=== PATIENT | female | born 1955 | race African-American/Black ===

== ENCOUNTER 2019-10-09 09:53 | Outpatient (CLI) | payer MEDICARE, SELFPAY ==
--- NOTE | ~2019-10-09 | MM_ITS ---
EXAMINATION: MM screening kiya BI w mary HISTORY: Screening mammogram TECHNIQUE: Craniocaudal and mediolateral oblique 3-D tomosynthesis images were obtained and synthetic 2-D images were generated. CAD analysis was submitted and interpreted. COMPARISON: 10/06/2018, 09/30/2017, 08/23/2015 bilateral digital screening mammogram examinations BREAST PARENCHYMAL COMPOSITION: There are scattered areas of fibroglandular density. FINDINGS: There are scattered bilateral benign calcifications. There is no evidence of suspicious mas s, calcification, or architectural distortion to suggest malignancy in either breast. There has been no suspicious interval change. IMPRESSION: 1. No mammographic evidence of malignancy. 2. Recommend routine screening mammography in one year. BI-RADS Category 2: Benign finding(s). Reviewed, dictated and finalized at location A.
== END 2019-10-09 09:54 | disposition home or self-care (01) ==
LOC: ANHIMG 10:01
PROVIDERS: PCP Family Medicine; Visit Provider Family Medicine
DX: Z12.31 Encounter for screening mammogram for malignant neoplasm of breast (principal)
CPT/HCPCS: 77063; 77067

== ENCOUNTER 2019-12-24 10:14 | Outpatient (CLI) | payer MEDICARE, SELFPAY ==
--- NOTE | ~2019-12-24 | CT_ITS ---
EXAMINATION:CT lung screening DATE: 12/24/2019 11:10 INDICATION: Personal history of tobacco dependence. Current smoker with 32 pack year history. TECHNIQUE: Computed tomography (CT) of the chest was performed without intravenous contrast. Automate d exposure control and iterative reconstruction technique were employed. The dose-length product (DLP ) was 322.83 mGy-cm. COMPARISON: Chest CT 09/30/2017 FINDINGS: A calcified left lung nodule is consistent with old granulomatous disease. No pleural effus ion. The heart size is normal. There are coronary artery calcifications. No pericardial effusion. The re are surgical changes of the stomach. There is a ventral hernia containing nonobstructed small see l. There is moderate thoracic spondylosis. IMPRESSION: 1. Lung-RADS category 1: Negative. Continue annual screening with noncontrast low-dose chest CT in 12 months. Reviewed, dictated and finalized at location A. IMPRESSION: 1. Lung-RADS category 1: Negative. Continue annual screening with noncontrast l ow-dose chest CT in 12 months.
== END 2019-12-24 10:15 | disposition home or self-care (01) ==
LOC: ANHIMG 10:21
PROVIDERS: PCP Family Medicine; Visit Provider Family Medicine
DX: Z12.2 Encounter for screening for malignant neoplasm of respiratory organs (principal); F17.210 Nicotine dependence, cigarettes, uncomplicated
CPT/HCPCS: G0297

== ENCOUNTER 2020-10-19 08:31 | Outpatient (CLI) | payer MEDICARE, SELFPAY ==
--- NOTE | ~2020-10-19 | CT_ITS ---
EXAMINATION: CT abdomen pelvis wo con DATE: 10/19/2020 09:14 INDICATION: Abdominal pain TECHNIQUE: Computed tomography (CT) of the abdomen and pelvis was performed without intravenous contr ast. Automated exposure control and iterative reconstruction technique were employed. Exam dose: 144 5.63 mGy-cm total exam DLP. COMPARISON: None. FINDINGS: Minimal atelectasis in the dependent lower lobes, right greater than left. Normal heart size. No pericardial or pleural effusion. The gallbladder is absent. The liver, spleen, pancreas, bile ducts and pancreatic duct are unremarkable. No adrenal mass lesion. No renal mass lesion or urinary tract calculus or hydroureteronephrosis is detected. The urinary blad tr is unremarkable. Multiple calcified uterine outline fibroids including up to 6.5 cm heavily calcified uterine fibroid. Postoperative change of the stomach (gastric bypass). Multiple diverticula of the descending colon, without evidence of diverticulitis. No bowel obstructio n, bowel wall thickening, pneumatosis or intraperitoneal free air. Normal caliber of the abdominal aorta. No intraperitoneal or retroperitoneal or pelvic mass lesion or adenopathy or ascites. There is a wide supraumbilical ventral abdominal wall defect containing fat, small bowel and transver se colon without strangulation or obstruction. Small fat-containing umbilical hernia. Degenerative changes of the thoracic and lumbar spine, including multilevel degenerative disc disease of the lumbar and lumbosacral spine and degenerative change at the apophyseal joints with associated grade 1 anterolisthesis at L4-5. IMPRESSION: Status post cholecystectomy Status post gastric bypass Multiple up to 6.5 cm calcified uterine fibroids Diverticulosis of the descending colon; no CT evidence of diverticulitis Reviewed, dictated and finalized at [facility]. Reviewed, dictated and finalized at location A.
== END 2020-10-19 08:32 | disposition home or self-care (01) ==
LOC: ANHIMG 08:38
PROVIDERS: PCP Family Medicine; Visit Provider Family Medicine
DX: R10.9 Unspecified abdominal pain (principal); Z90.49 Acquired absence of other specified parts of digestive tract; Z98.84 Bariatric surgery status; D25.9 Leiomyoma of uterus, unspecified; K57.90 Diverticulosis of intestine, part unspecified, without perforation or abscess without bleeding
CPT/HCPCS: 74176

== ENCOUNTER 2021-02-08 09:46 | Emergency (ER) | payer MEDICARE, SELFPAY ==
--- NOTE | ~2021-02-08 | XR_ITS ---
EXAMINATION: XR hip LT 2V w AP pelvis DATE: 02/08/2021 12:34 INDICATION: Left hip and groin pain post fall 3 weeks prior TECHNIQUE: Anteroposterior view of the pelvis and anteroposterior and frog-leg lateral views of the l eft hip were obtained. COMPARISON: CT dated 10/19/2020 FINDINGS: Bone alignment is normal. No fracture. Severe osteoarthritis at the left hip with axial predominant n onuniform joint space narrowing with subarticular sclerosis and cystic changes at the medial aspect o f the left femoral head. There is slight left acetabular protrusio likely related to secondary remode ling with prominent sclerosis of the quadrilateral plate. Mild right hip osteoarthritis. Moderate geovani ateral sacroiliac osteoarthritis and moderate to severe lower lumbar spondylosis. Multiple phlebolith s in the pelvis along with a larger 7.6 x 5.4 cm calcified fibroid in the central pelvis. IMPRESSION: 1. Severe left and mild right hip osteoarthritis. Acute osseous abnormality. 2. [id number] lower lumbar spondylosis and moderate bilateral sacral iliac osteoarthritis. 3. Large calcified uterine fibroid. Reviewed, dictated and finalized at location A. YTICAL TECH IMPRESSION: 1. Severe left and mild right hip osteoarthritis. Acute osseous abnormality. 2. [id number] lower lumbar spondylosis and moderate bilateral sacral il iac osteoarthritis. 3. Large calcified uterine fibroid.
--- NOTE | ~2021-02-08 | CT_ITS ---
EXAMINATION: CT abdomen pelvis w con DATE: 02/08/2021 14:33 INDICATION: Left lower abdominal pain TECHNIQUE: Computed tomography (CT) of the abdomen and pelvis was performed with 100 mL Omnipaque-350 intravenous contrast. Automated exposure control and iterative reconstruction technique were employe d. The dose-length product was 1398.15 mGy-cm. COMPARISON: 10/19/2020 FINDINGS: Lung bases are clear. Heart size is normal. Atherosclerotic coronary artery calcific location. No per icardial or pleural effusion. Small sliding-type hiatal hernia with change of prior Daya-en-Y gastric bypass procedure. Gallbladder is not visualized and surgically absent. Liver, spleen, pancreas, bila teral adrenal glands and kidneys are normal. 6.5 cm densely calcified degenerated uterine fibroid. Ad ditional calcifications at the periphery of the uterus could represent additional calcified uterine f ibroids, phleboliths or some combination thereof. Bladder is normal. Bilateral adnexa are unremarkabl e. Scattered diverticulosis most prominent along the descending colon with mild inflammatory strandin g surrounding a diverticulum at the distal descending colon consistent with diverticulitis. No absces s, free intraperitoneal gas or fluid. There are couple large ventral hernias, the one to the cervical ventral hernias at the central abdomen, one on the left containing a short segment of nonobstructed transverse colon. No bowel obstruction. The appendix is not visualized. No pericecal inflammatory jose alfredo nge to suggest acute appendicitis. No pathologically enlarged abdominal or pelvic lymphadenopathy. Mo derate to severe thoracolumbar spondylosis. Bilateral hip osteoarthritis, severe on the left and mild on the right. Moderate bilateral sacroiliac osteoarthritis. IMPRESSION: 1. Radiographically uncomplicated diverticulitis at the distal descending colon. 2. Small sliding-type hiatal hernia. 3. Multiple ventral hernias one containing short segment of nonobstructed transverse colon. 4. Large calcified uterine fibroid. Reviewed, dictated and finalized at location A. 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 Radiographically uncomplicated diverticulitis at the distal descending colon . 2. Small sliding-type hiatal hernia. 3. Multiple ventral hernias one containing short segment of nonobstructed trans verse colon. 4. Large calcified uterine fibroid.
[2021-02-08 09:58] VITALS: BP 129/79; PULSE 92; RESP 20; TEMP 35.7; O2SAT 98
--- NOTE | 2021-02-08 12:07 | ED.LOWEXIN ---
HPI - Extremity Injury (Lower) General Chief Complaint: Extremity Injury, Lower Stated Complaint: L Hip and L Leg Pain Time Seen by Provider: 02/08/21 11:23 Source: patient and RN notes reviewed Mode of arrival: ambulatory Limitations: no limitations History of Present Illness HPI Narrative: This is a 65 year old female with history of sciatica, chronic pain and obesity who presents for evaluation of left groin pain. She has been dealing with left buttock pain for 2 months that she is being treated for sciatica. She accidentally fell 3 weeks ago onto her right side. She is here because she has been having intermittent left groin pain for 3 days. She still has groin pain today. She denies associated nausea, vomiting, fever, chills, dysuria, hematuria, or paresthesia. She normally takes tramadol every day for her pain but today she did not take her pain medication. She denies hitting her head or LOC during that fall. She rates her pain 10/10. Related Data Home Medications Medication Instructions Recorded Confirmed amoxicillin 02/16/19 metronidazole [Flagyl] 500 mg PO Q12H 02/16/19 Allergies Allergy/AdvReac Type Severity Reaction Status Date / Time morphine Allergy Unknown ITCHING Verified 02/16/19 12:09 Review of Systems Review of Systems: All systems reviewed & are unremarkable except as noted in HPI and below PMFSH Past Medical History Medical History Hypertension Surgical History Surgical History History of orthopedic surgery Social History Social History Smoking status: Current every day smoker Exam Const: General: no acute distress and alert Nutritional Appearance: obese Orientation/consciousness: patient oriented x3 HENMT: Head: normocephalic and atraumatic Face and sinus: normal facial exam, sinuses nontender and face symmetric Mouth: Yes Normal oral and palatal mucosa present, Yes lip normal, Yes oropharynx normal and Yes moist mucous membranes Eyes: EOM: EOMs intact bilaterally Resp: Effort & Inspection: normal respiratory effort and no retractions Auscultation: clear to auscultation bilaterally Cardio: Rate: regular rate Rhythm: regular rhythm Heart sounds: no murmurs GI: GI Palp: Yes Soft to palpation, Yes Tenderness to palpation present (GI) (LLQ), No Guarding due to palpation present (GI) and No Rigid due to palpation Auscultation: normal bowel sounds Back/Spine/Pelvis: Back: no CVA tenderness Skin: General skin exam: normal color Rashes: no rashes Neuro: General: patient oriented x3, moves all extremities and CN's II-XI intact bilaterally Course Reevaluation(s) Reevaluation #1: I discussed with patient that she was found to have diverticulitis causing her pain in her abdomen. She also has severe osteoarthritis. Date: 02/08/21 Time: 14:53 Vital Signs Vital signs: Vital Signs Temperature 96.3 F L 02/08/21 09:58 Pulse Rate 92 02/08/21 09:58 Respiratory Rate 20 02/08/21 09:58 Blood Pressure 129/79 02/08/21 09:58 Pulse Oximetry 98 02/08/21 09:58 Temperature 96.3 F L 02/08/21 09:58 Pulse Rate 88 02/08/21 15:22 Respiratory Rate 17 02/08/21 15:22 Blood Pressure 134/76 02/08/21 15:22 Pulse Oximetry 96 02/08/21 15:22 MDM - Extremity Injury (Lower) Lab Data Attestation: I reviewed the patient's lab results. Result diagrams: 02/08/21 13:22 02/08/21 13:22 Labs: Lab Results 02/08/21 02/08/21 02/08/21 Range/Units 13:22 13:22 13:22 WBC 7.1 (4.5-10.0) K/mm3 RBC 3.94 L (4.2-5.4) M/mm3 Hgb 11.6 L (12.0-15.0) g/dL Hct 36.3 L (37.0-47.0) % MCV 92.1 (80-100) fl MCH 29.4 (26-34) pg MCHC 32.0 (32-36) g/dl RDW 15.4 H (11.5-14.5) % Plt Count 325 (150-375) k/mm3 MPV 10.0 (7.4-10.4) fl
[2021-02-08] MEDS: HYDROcodone/acetaminophen (*CRX) 5-325 MG TABLET 1 TAB PO (12:27)
[2021-02-08 13:44] LABS: Basophils Percent Auto 0.1 % (0.2-1.2); Eosinophils Absolute Auto 0.3 K/mm3 (0-0.3); Eosinophils Percent Auto 4.2 % (0-4.4); Hematocrit 36.3 % (37.0-47.0); Hemoglobin 11.6 g/dL (12.0-15.0); Immature Granulocyte Absolute 0.01 K/mm3 (0.00-0.031); Immature Granulocyte Percent A 0.1 % (0-0.5); Lymphocytes Absolute Auto 2.76 K/mm3 (0.9-3.2); Lymphocytes Percent Auto 38.7 % (18.3-44.2); Mean Corpuscular Hemoglobin 29.4 pg (26-34); Mean Corpuscular Volume 92.1 fl (80-100); Monocytes Absolute Auto 0.9 K/mm3 (0.1-0.6); Monocytes Percent Auto 12.1 % (2.6-8.5); Neutrophils Absolute Auto 3.2 K/mm3 (1.3-6.7); Neutrophils Percent Auto 44.8 % (45.5-73.1); Platelet Count Result 325 k/mm3 (150-375); Red Blood Count 3.94 M/mm3 (4.2-5.4); Red Cell Distribution Width 15.4 % (11.5-14.5); White Blood Count 7.1 K/mm3 (4.5-10.0)
[2021-02-08 13:54] LABS: Alanine Aminotransferase 12 U/L (4-35); Albumin Level 4.1 g/dL (3.5-5.1); Alkaline Phosphatase 98 U/L (38-126); Anion Gap 7 mmol/L (8-16); Aspartate Amino Transferase 20 U/L (14-36); Bilirubin,Total 0.4 mg/dL (0.2-1.3); Blood Urea Nitrogen 13 mg/dL (7-17); Calcium 9.1 mg/dL (8.4-10.2); Carbon Dioxide 28 mmol/L (22-30); Chloride 103 mmol/L (98-107); Estimated CRCL calculation 117 ml/min; Estimated Glomerular Filt Rate > 60; Glucose 94 mg/dL (65-110); Potassium 4.3 mmol/L (3.4-5.0); Sodium 138 mmol/L (137-145)
[2021-02-08 13:59] LABS: Add Urine Microscopic? NO; Appearance Urine Clear (Clear); Bilirubin Urine Negative (Negative); Blood Urine Negative (Negative); Color Urine Straw (Yellow); Glucose Urine UA Negative (Negative); Ketones Urine Negative (Negative); Leukocyte Esterase Ur Negative LEU/UL (Negative); Nitrate Urine Negative (Negative); Protein Urine Negative (Negative); Specific Grav Ur 1.012 (1.001-1.035); Urobilinogen Urine Negative mg/dL (<2.0)
[2021-02-08 15:22] VITALS: BP 134/76; PULSE 88; RESP 17; O2SAT 96
== END 2021-02-08 15:31 | disposition home or self-care (01) ==
PROVIDERS: Emergency Provider General Practice; PCP Family Medicine
DX: K57.32 Diverticulitis of large intestine without perforation or abscess without bleeding (principal); M16.12 Unilateral primary osteoarthritis, left hip; K43.9 Ventral hernia without obstruction or gangrene; F17.210 Nicotine dependence, cigarettes, uncomplicated; I10 Essential (primary) hypertension
CPT/HCPCS: 36415; 73502; 74177; 80053; 81003; 85025; 99284; A9270; Q9967

== ENCOUNTER 2021-10-15 22:42 | Emergency (ER) | payer MEDICARE, SELFPAY ==
--- NOTE | ~2021-10-15 | CT_ITS ---
EXAMINATION: CT brain wo con DATE: 10/16/2021 03:18 INDICATION: Dizziness. Frontal headache. TECHNIQUE: Computed tomography (CT) of the head was performed without intravenous contrast. The mA wa s adjusted according to patient size. Iterative reconstruction technique was employed. The dose-lengt h product was 605.33 mGy-cm. COMPARISON: None FINDINGS: There is no intracranial hemorrhage, acute infarction, or abnormal intracranial mass lesion . The ventricles are normal in size. The paranasal sinuses are clear. The orbits are normal. The mast oid air cells are normal. IMPRESSION: 1. Normal brain. Reviewed, dictated and finalized at location A. IMPRESSION: 1. Normal brain.
[2021-10-15 22:46] VITALS: BP 173/81; PULSE 65; RESP 16; TEMP 36.2; O2SAT 100
--- NOTE | 2021-10-16 02:51 | ED.DIZZY ---
HPI - Dizziness General Chief Complaint: Dizziness Stated Complaint: dizzy Time Seen by Provider: 10/16/21 02:28 History of Present Illness HPI Narrative: 65-year-old female presented to the emergency department for evaluation of onset of dizziness and vertigo symptoms. Patient states on she was started on antibiotics and steroids for a ear infection. Patient states at approximately 730 this evening she had onset of a spinning sensation with associated nausea and dizziness. Patient states that this has since improved. Related Data Home Medications Medication Instructions Recorded Confirmed amoxicillin 500 mg capsule 02/16/19 metronidazole 500 mg tablet 500 mg PO Q12H 02/16/19 (Flagyl) Allergies Allergy/AdvReac Type Severity Reaction Status Date / Time morphine Allergy Unknown ITCHING Verified 10/16/21 03:24 Review of Systems Review of Systems: CONSTITUTIONAL: Denies fever, chills, or sweats. EYES: Denies visual changes, redness, or discharge. ENT: Denies rhinorrhea, congestion, sore throat, or otalgia. CARDIOVASCULAR: Denies chest pain, palpitations, or edema. RESPIRATORY: Denies cough or dyspnea. GASTROINTESTINAL: Denies abdominal pain, nausea, vomiting, or diarrhea. GENITOURINARY: Denies dysuria or hematuria. SKIN: Denies rash or itching. MUSCULOSKELETAL: Denies back pain, joint pain, or myalgia. NEUROLOGIC: Denies numbness or weakness but does have vertigo PMFSH Past Medical History Medical History Hypertension Surgical History Surgical History History of orthopedic surgery Social History Social History Smoking status: Current every day smoker Exam Narrative: APPEARANCE: Well appearing, no pain, no distress, well-nourished. HEAD: normocephalic, atraumatic. EYES: PERRLA/EOMI, conjunctivae clear. NOSE: Normal no drainage EARS: Bilateral cerumen impaction THROAT: Pharynx clear, no exudate. NECK: Supple. No adenopathy, no masses. RESPIRATORY: Airway patent, respirations nonlabored. Clear to auscultation bilaterally, no rales, rhonchi, wheezing. CARDIOVASCULAR: Regular rate and rhythm without murmurs rubs or gallops. ABDOMINAL: Soft, nontender, nondistended, normal bowel sounds MUSCULOSKELETAL: Moves all extremities. Strength/ROM intact, No edema, No calf tenderness. NEURO: Alert. Cranial nerves II through XII intact. Grossly intact SKIN: Warm, dry. Normal Color Course Course Emergency Course: Patient did not tolerate her ears being cleaned. Patient reports her symptoms did improve with the meclizine. Patient is currently on antibiotics. Vital Signs Vital signs: Vital Signs Temperature 97.2 F L 10/15/21 22:46 Pulse Rate 65 10/15/21 22:46 Respiratory Rate 16 10/15/21 22:46 Blood Pressure 173/81 H 10/15/21 22:46 Pulse Oximetry 100 10/15/21 22:46 Oxygen Delivery Room Air 10/15/21 22:46 Temperature 98.0 F 10/16/21 03:21 Pulse Rate 63 10/16/21 04:21 Respiratory Rate 20 10/16/21 04:21 Blood Pressure 113/67 10/16/21 04:21 Pulse Oximetry 100 10/16/21 04:21 Oxygen Delivery Room Air 10/15/21 22:46 MDM - Dizziness Lab Data Result diagrams: 10/16/21 03:02 10/16/21 03:02 Labs: Lab Results 10/16/21 10/16/21 Range/Units 03:02 03:02 WBC 9.7 (4.5-10.0) K/mm3 RBC 4.09 L (4.2-5.4) M/mm3 Hgb 10.9 L (12.0-15.0) g/dL Hct 35.7 L (37.0-47.0) % MCV 87.3 (80-100) fl MCH 26.7 (26-34) pg MCHC 30.5 L (32-36) g/dl RDW 15.6 H (11.5-14.5) % Plt Count 368 (150-375) k/mm3 MPV 9.4 (7.4-10.4) fl Immature Gran % (Auto) 0.2 (0-0.5) % Neut % (Auto) 42.2 L (45.5-73.1) % Lymph % (Auto) 46.6 H (18.3-44.2) % Harlan % (Auto) 9.8 H (2.6-8.5) % Eos % (Auto) 0.8 (0-4.4) % Baso % (Auto) 0.4 (0.2-1.2) % Ly
[2021-10-16 03:06] LABS: Basophils Percent Auto 0.4 % (0.2-1.2); Eosinophils Absolute Auto 0.1 K/mm3 (0-0.3); Eosinophils Percent Auto 0.8 % (0-4.4); Hematocrit 35.7 % (37.0-47.0); Hemoglobin 10.9 g/dL (12.0-15.0); Immature Granulocyte Absolute 0.02 K/mm3 (0.00-0.031); Immature Granulocyte Percent A 0.2 % (0-0.5); Lymphocytes Percent Auto 46.6 % (18.3-44.2); Mean Corpuscular HGB Conc 30.5 g/dl (32-36); Mean Corpuscular Hemoglobin 26.7 pg (26-34); Mean Corpuscular Volume 87.3 fl (80-100); Mean Platelet Volume 9.4 fl (7.4-10.4); Monocytes Percent Auto 9.8 % (2.6-8.5); Neutrophils Absolute Auto 4.1 K/mm3 (1.3-6.7); Neutrophils Percent Auto 42.2 % (45.5-73.1); Platelet Count Result 368 k/mm3 (150-375); Red Blood Count 4.09 M/mm3 (4.2-5.4); Red Cell Distribution Width 15.6 % (11.5-14.5); White Blood Count 9.7 K/mm3 (4.5-10.0)
[2021-10-16 03:17] LABS: Alanine Aminotransferase 14 U/L (6-35); Albumin Level 4.3 g/dL (3.5-5.1); Alkaline Phosphatase 85 U/L (38-126); Anion Gap 5 mmol/L (8-16); Aspartate Amino Transferase 30 U/L (14-36); Bilirubin,Total 0.4 mg/dL (0.2-1.3); Blood Urea Nitrogen 16 mg/dL (7-17); Calcium 8.7 mg/dL (8.4-10.2); Carbon Dioxide 32 mmol/L (22-30); Chloride 100 mmol/L (98-107); Estimated CRCL calculation 103 ml/min; Estimated Glomerular Filt Rate > 60; Glucose 97 mg/dL (65-110); Potassium 3.7 mmol/L (3.4-5.0); Sodium 137 mmol/L (137-145)
[2021-10-16] MEDS: MECLIZINE HCL 25 MG TABLET PO (03:20)
[2021-10-16 03:21] VITALS: BP 112/63; PULSE 71; RESP 18; TEMP 36.7; O2SAT 100
[2021-10-16 04:21] VITALS: BP 113/67; PULSE 63; RESP 20; O2SAT 100
== END 2021-10-16 04:23 | disposition home or self-care (01) ==
PROVIDERS: Emergency Provider Emergency Medicine; PCP Family Medicine
DX: H81.10 Benign paroxysmal vertigo, unspecified ear (principal); H61.23 Impacted cerumen, bilateral; I10 Essential (primary) hypertension; F17.200 Nicotine dependence, unspecified, uncomplicated
CPT/HCPCS: 36415; 70450; 80053; 85025; 99284; A9270

== ENCOUNTER 2024-01-02 07:21 | Outpatient (CLI) | payer MEDICARE, SELFPAY ==
--- NOTE | ~2024-01-02 | MM_ITS ---
EXAMINATION: MM screening kiya BI w mary HISTORY: Screening TECHNIQUE: Craniocaudal and mediolateral oblique 3-D tomosynthesis images were obtained and synthetic 2-D images were generated. CAD analysis was submitted and interpreted. COMPARISON: Comparison to multiple prior studies sequentially, with oldest reviewed study dated 09/30. BREAST PARENCHYMAL COMPOSITION: Not Dense: The breasts are almost entirely fatty. FINDINGS: There is no evidence of suspicious mass, calcification, or architectural distortion to sugg est malignancy in either breast. There has been no suspicious interval change. IMPRESSION: 1. No mammographic evidence of malignancy. 2. Recommend routine screening mammography in one year. BI-RADS Category 1: Negative Reviewed, dictated and finalized at location B.
== END 2024-01-02 07:22 | disposition home or self-care (01) ==
LOC: ANHIMG 07:22
PROVIDERS: PCP Nurse Practitioner Family; Visit Provider Family Medicine
DX: Z12.31 Encounter for screening mammogram for malignant neoplasm of breast (principal)
CPT/HCPCS: 77063; 77067

== ENCOUNTER 2024-01-23 08:27 | Outpatient (CLI) | payer MEDICARE, SELFPAY ==
--- NOTE | ~2024-01-23 | CT_ITS ---
CT Scan of the Chest without Contrast: Clinical Indication: Lung cancer screening, nicotine dependence Technique: Contiguous sections were acquired throughout the chest without intravenous contrast. Dose reduction technique was used on this scan by utilizing automated exposure control and iterative recon struction technique. The dose-length product (DLP) was 336.50 mGy-cm. Findings: There is no evidence of any significant mediastinal, hilar or axillary lymphadenopathy. Coronary mustapha ry calcifications are present. There is no evidence of pleural or pericardial effusion. The lungs are clear. No pulmonary nodules or infiltrates are noted. Images through the upper abdomen reveal no abnormalities. Impression: Lung RADS 1: Negative. 12 month follow-up screening CT advised. Reviewed, dictated and finalized at location . TIVE DIRECTOR Impression: Lung RADS 1: Negative. 12 month follow-up screening CT advised.
--- NOTE | ~2024-01-23 | XR_ITS ---
AP and lateral views of the left hip Clinical history: Pain Findings: No acute fracture or dislocation is seen. Osseous alignment is anatomic. There is moderate to advanced left hip arthritis, joint space narrowing and osteophyte formation. There is probable joanne ctive sclerosis. Suggestion of developing acetabular protrusio. Moderate degenerative change of bilat eral SI joints noted. Large calcified uterine fibroids are present. Impression: Moderate to advanced degenerative change of left hip joint with possible developing acetabular protru sio, as detailed above. Large calcified fibroids. Moderate degenerative change of the SI joints. Reviewed, dictated and finalized at location . [employer]VERTISING [employer] ONLINE Impression: Moderate to advanced degenerative change of left hip joint with possible develo ping acetabular protrusio, as detailed above. Large calcified fibroids. Moderate degenerative change of the SI joints.
== END 2024-01-23 08:28 | disposition home or self-care (01) ==
PROVIDERS: PCP Nurse Practitioner Family; Visit Provider Nurse Practitioner Family
DX: M16.12 Unilateral primary osteoarthritis, left hip (principal); Z12.2 Encounter for screening for malignant neoplasm of respiratory organs; D36.7 Benign neoplasm of other specified sites; F17.210 Nicotine dependence, cigarettes, uncomplicated
CPT/HCPCS: 71271; 73502

== ENCOUNTER 2025-01-08 11:34 | Outpatient (CLI) | payer MEDICARE, SELFPAY ==
--- OUTSIDE RECORDS SUMMARY | 2024-12-07 08:20 | XMS_ITS ---
Author Organization [facility] Address [address] [place] [address] Care Team Providers Care Review Assistant Name Role Phone Mikayla Hernandez Primary Care Provider REASON FOR VISIT 4 week F/U *must be in office* Medications Medication SIG (Take, Route, Frequency, Duration) Notes Start Date End Date Status Fish Oil [place]-3 1000 MG 1 capsule Orall y Once a day Active Vitamin E 180 MG (400 UNIT) as directed Orally Active Calcium 600 MG 1 tablet with meals Orally Twice a day Active Potassium 99 MG 1 tablet Orally Once a day Active Hair Skin & Nails Advanced - as directed Orally Active Vitamin D3 50 MCG (2000 UT) 1 tablet Ora lly Once a day Active Vitamin C 500 MG 1 tablet Orally Once a day Active busPIRone HCl 15 MG 1 tablet once daily in the afternoon Orally Once a day; Duration: 30 days Active traZODone HCl 50 MG 1 to 1.5 tablets at bedtime as needed for sleep Orally Once a day; Duration: 30 days As needed for sleep Active Gabapentin 100 MG 1 capsule Orally twice a day; Duration: 30 days As needed for pain or to sleep Active FLUoxetine HCl 40 MG 1 capsule Orally on ce nightly at bedtime; Duration: 30 days Active clonazePAM 1 MG 1 tablet Orally 3 times a day; Duration: 30 days As needed for anxiety Active busPIRone HCl 30 MG 1 tablet in the morn ing and 1 tablet in the evening Orally Twice a day; Duration: 30 days Active Gabapentin 300 MG 1 capsule Orally at bedtime to assist with sleep/anxiety; Duration: 30 days Active Lisinopril 10 MG 1 tablet Orally Once a day Active Aspirin 81 Active traMADol HCl 50 MG 1 tablet as needed Orally Once a day Active hydroCHLOROthiazide 25 MG 1 tablet in the morning Orally Once a day As needed Active Ibuprofen 800 MG 1 tablet with food o r milk as needed Orally every 8 hrs Active Famotidine 40 MG 1 tablet as needed Orally Once a day Active Womens 50+ Multi Vitamin Active Vitamin B-12 2500 MCG as directed Sublingual Active Ce Allergy 180 MG 1 tablet Orally O nce a day Active Social History Sex Assigned At : Social History Observation Description Sex Assigned At Female Encounters Encounter Location Date Provider Diagnosis [place] [address] [address] 12/07/2024 Mikayla Hernandez Depression F32.9 ; Anxiety F41.9 ; Benzodiazepine dependence F13.20 ; Alcohol use disorder in remission F10.91 ; Nicotine dependence F17.200 and Fatigue R53.83 Assessments Encounter Date Diagnosis (ICD Code) Assessment Notes Treatment Notes Treatment Clinical Notes Section Notes 12/07/2024 Depression (ICD-10 - F32.9) 12/07/2024 Anxiety (ICD-10 - F41.9) Clonazepam. Now taking 2 -3 mg QD down from 4 mg. . Explained that the goal is use sparingly or not at all and we will go very slow with this taper. Asked to come in person at next visit and to bring all medications. 12/07/2024 Benzodiazepine dependence (ICD-10 - F13.20) PCP 01/01 prescribing clonazepam 2 mg TID Reduced to 2 mg BID by Tess Cohen. 08/20/24 Using 2 mg BID, stopped Ambien 09/08/24 clonazepam 2-3 mg total QD. 12/06/24 12/07/2024 Alcohol use disorder in remission (ICD-10 - F10.91) 12/07/2024 Nicotine dependence (ICD-10 - F17.200) 12/07/2024 Fatigue (ICD-10 - R53.83) Agrees to labs. Discussed Primary care at [facility]. DOES SHEWANT TOPURSUE Plan Of Treatment Medication Medication Name Sig Start Date Stop Date Notes busPIRone HCl 15 MG 1 tablet once daily in the afternoon Orally Once a day; Duration: 30 days traZODone HCl 50 MG 1 to 1.5 tablets at bedtime as needed for sleep Orally Once a day; Duration: 30 days Gabapentin 100 MG 1 capsule Orally twi ce a day; Duration: 30 days FLUoxetine HCl 40 MG 1 capsule Orally on ce nightly at bedtime; Duration: 30 days clonazePAM 1 MG 1 tablet Orally 3 ti mes a day; Duration: 30 days busPIRone HCl 30 MG 1 tablet in the morn ing and 1 tablet in the evening Orally Twice a day; Duration: 30 days Treatment Notes Assessment Notes Anxiety Clonazepam. Now taking 2 -3 mg QD down from 4 mg. . Explained that the goal is use sparingly or not at all and we will go very slow with this taper. Asked to come in person at next visit and to bring all medications. Benzodiazepine dependence PCP 01/01 prescribing clonazepam 2 mg TID Reduced to 2 mg BID by Tess Cohen. 08/20/24 Using 2 mg BID, stopped Ambien 09/08/24 clonazepam 2-3 mg total QD. 12/06/24 Fatigue Agrees to labs. Disc ussed Primary care at [facility]. DOES DAVID DUPREE Progress Notes * Chelsy SENIORDOB: 5 (69 yo F)Acc No.[id number]:12/07/2024 UNLOCKED PROGRESS NOTE Patient: Haritha KIRKLAND Chelsy Provider: CONNIE Campbell :1955 A ge:69 Y S ex:Female Date:12/07/2024 Address:[address] [place], [place] [id number] Subjective: * Chief Complaints: * 1 . 4 week F/U *must be in office*. * Medical History: * Medications: T alondrag Vitamin C 500 MG Tablet 1 tablet Orally Once a day , Taking Vitamin D3 50 MCG (2000 UT) Tablet 1 tablet Orally Once a day , Taking Calcium 600 MG Tablet 1 tablet with meals Orally Twice a day , Taking Vitamin E 180 MG (400 UNIT) Capsule as directed Orally , Taking Hair Skin & Nails Advanced - Tablet as directed Orally , Taking Potassium 99 MG Tablet 1 tablet Orally Once a day , Taking Fish Oil [place]-3 1000 MG Capsule 1 capsule Orally Once a day , Taking Vitamin B-12 2500 MCG Tablet Sublingual as directed Sublingual , Taking Womens 50+ Multi Vitamin , Taking Ce Allergy 180 MG Tablet 1 tablet Orally Once a day , Taking Aspirin 81 , Taking hydroCHLOROthiazide 25 MG Tablet 1 tablet in the morning Orally Once a day As needed, Taking traMADol HCl 50 MG Tablet 1 tablet as needed Orally Once a day , Taking Famotidine 40 MG Tablet 1 tablet as needed Orally Once a day , Taking Ibuprofen 800 MG Tablet 1 tablet with food or milk as needed Orally every 8 hrs , Taking Lisinopril 10 MG Tablet 1 tablet Orally Once a day , Taking Gabapentin 300 MG Capsule 1 capsule Orally at bedtime to assist with sleep/anxiety , Taking clonazePAM 1 MG Tablet 1 tablet Orally 3 times a day As needed for anxiety, Taking FLUoxetine HCl 40 MG Capsule 1 capsule Orally once nightly at bedtime , Taking busPIRone HCl 30 MG Tablet 1 tablet in the morning and 1 tablet in the evening Orally Twice a day , Taking busPIRone HCl 15 MG Tablet 1 tablet once daily in the afternoon Orally Once a day , Taking Gabapentin 100 MG Capsule 1 capsule Orally twice a day As needed for pain or to sleep, Taking traZODone HCl 50 MG Tablet 1 to 1.5 tablets at bedtime as needed for sleep Orally Once a day As needed for sleep Objective: * Vitals: Assessment: * Assessment: 1. D epression - F32.9 2 . A nxiety - F41.9 (Primary) 3 .?Benzodiazepine dependence - F13.20 4 . A lcohol use disorder in remission - F10.91 5 . N icotine dependence - F17.200 6 . F atigue - R53.83 Plan: * Treatment: 2. B enzodiazepine dependence Notes: PCP 01/01 prescribing clonazepam 2 mg TID Reduced to 2 mg BID by Tess Cohen. 08/20/24 Using 2 mg BID, stopped Ambien 09/08/24 clonazepam 2-3 mg total QD. 12/06/24 3. F piyush Notes: Agrees to labs. Discussed Primary care at [facility].DOES SHEWANT TOPURSUE * * Electronic signature of Mikayla Hernandez , [id number] on 01/08/2025 at 11:44 AM CDT Sign off status: Pending * Provider: VISHAL Campbell- Date: 0 12/07/2024 Generated for Lory sen/Alla/eTransmitting on: 1 11:44 AM CDT
--- OUTSIDE RECORDS SUMMARY | 2024-12-14 08:40 | XMS_ITS ---
Author Organization [facility] Address [address] [place] [address] Care Team Providers Care Family Practice Doctor Name Role Phone Mikayla Hernandez Primary Care Provider REASON FOR VISIT 4 week F/U *must be in office* Medications Medication SIG (Take, Route, Frequency, Duration) Notes Start Date End Date Status busPIRone HCl 30 MG 1 tablet in the morn ing and 1 tablet in the evening Orally Twice a day; Duration: 30 days Active traZODone HCl 50 MG 1 to 1.5 tablets at bedtime as needed for sleep Orally Once a day; Duration: 30 days As needed for sleep Active clonazePAM 1 MG 1 tablet Orally 3 times a day; Duration: 30 days As needed for anxiety Active FLUoxetine HCl 40 MG 1 capsule Orally on ce nightly at bedtime; Duration: 30 days Active clonazePAM 1 MG 1 tablet Orally 3 times a day; Duration: 8 days As needed 12/07/2024 Active Lisinopril 10 MG 1 tablet Orally Once a day Active Gabapentin 300 MG 1 capsule Orally at bedtime to assist with sleep/anxiety; Duration: 30 days Active Famotidine 40 MG 1 tablet as needed Orally Once a day Active Ibuprofen 800 MG 1 tablet with food o r milk as needed Orally every 8 hrs Active traMADol HCl 50 MG 1 tablet as needed Orally Once a day Active Vitamin B-12 2500 MCG as directed Sublingual Active Womens 50+ Multi Vitamin Active hydroCHLOROthiazide 25 MG 1 tablet in the morning Orally Once a day As needed Active Ce Allergy 180 MG 1 tablet Orally O nce a day Active Aspirin 81 Active Vitamin E 180 MG (400 UNIT) as directed Orally Active Hair Skin & Nails Advanced - as directed Orally Active Calcium 600 MG 1 tablet with meals Orally Twice a day Active Potassium 99 MG 1 tablet Orally Once a day Active Fish Oil [place]-3 1000 MG 1 capsule Orall y Once a day Active busPIRone HCl 15 MG 1 tablet once daily in the afternoon Orally Once a day; Duration: 30 days Active Vitamin D3 50 MCG (2000 UT) 1 tablet Ora lly Once a day Active Gabapentin 100 MG 1 capsule Orally twice a day; Duration: 30 days As needed for pain or to sleep Active Vitamin C 500 MG 1 tablet Orally Once a day Active Social History Sex Assigned At : Social History Observation Description Sex Assigned At Female Encounters Encounter Location Date Provider Diagnosis [address] [address] 12/14/2024 Mikayla Hernandez Depression F32.9 ; Anxiety F41.9 ; Benzodiazepine dependence F13.20 ; Alcohol use disorder in remission F10.91 ; Nicotine dependence F17.200 and Fatigue R53.83 Assessments Encounter Date Diagnosis (ICD Code) Assessment Notes Treatment Notes Treatment Clinical Notes Section Notes 12/14/2024 Depression (ICD-10 - F32.9) 12/14/2024 Anxiety (ICD-10 - F41.9) Clonazepam. Now taking 2 -3 mg QD down from 4 mg. . Explained that the goal is use sparingly or not at all and we will go very slow with this taper. Asked to come in person at next visit and to bring all medications. 12/14/2024 Benzodiazepine dependence (ICD-10 - F13.20) PCP 01/01 prescribing clonazepam 2 mg TID Reduced to 2 mg BID by Tess Cohen. 08/20/24 Using 2 mg BID, stopped Ambien 09/08/24 clonazepam 2-3 mg total QD. 12/06/24 12/14/2024 Alcohol use disorder in remission (ICD-10 - F10.91) 12/14/2024 Nicotine dependence (ICD-10 - F17.200) 12/14/2024 Fatigue (ICD-10 - R53.83) Agrees to labs. Discussed Primary care at [facility]. DOES SHEWANT TOPURSUE Plan Of Treatment Medication Medication Name Sig Start Date Stop Date Notes busPIRone HCl 30 MG 1 tablet in the morn ing and 1 tablet in the evening Orally Twice a day; Duration: 30 days traZODone HCl 50 MG 1 to 1.5 tablets at bedtime as needed for sleep Orally Once a day; Duration: 30 days clonazePAM 1 MG 1 tablet Orally 3 ti mes a day; Duration: 30 days FLUoxetine HCl 40 MG 1 capsule Orally on ce nightly at bedtime; Duration: 30 days busPIRone HCl 15 MG 1 tablet once daily in the afternoon Orally Once a day; Duration: 30 days Gabapentin 100 MG 1 capsule Orally twi ce a day; Duration: 30 days Treatment Notes [...] to labs. Disc ussed Primary care at [facility]. DOES [facility] Progress Notes * Chelsy SENIORDOB: 5 (69 yo F)Acc No.[id number]:12/14/2024 UNLOCKED PROGRESS NOTE Patient: Chelsy MEDINA Provider: SIVAKUMAR Campbell :1955 A ge:69 Y S ex:Female Date:12/14/2024 Address:[address] [place], [place] [id number] Subjective: * Chief Complaints: * 1 . 4 week F/U *must be in office*. * Medical History: * Medications: T aking Vitamin C 500 MG Tablet 1 tablet [...] Once a day , Taking Fish Oil [place]-3 1000 MG Capsule 1 capsule Orally Once [...] evening Orally Twice a day , Taking traZODone HCl 50 MG Tablet 1 to 1.5 tablets at bedtime as needed for sleep Orally Once a day As needed for sleep, Taking busPIRone HCl 15 MG Tablet 1 tablet once daily in the afternoon Orally Once a day , Taking Gabapentin 100 MG Capsule 1 capsule Orally twice a day As needed for pain or to sleep, Taking clonazePAM 1 MG Tablet 1 tablet Orally 3 times a day As needed Objective: * Vitals: Assessment: * Assessment: 1. [...] Agrees to labs. Discussed Primary care at [facility].DOES SHEWANT TOPURSUE * * Electronic signature of Mikayla Hernandez , [id number] on 01/08/2025 at 11:43 AM CDT Sign off status: Pending * Provider: SIVAKUMAR Campbell Date: 1 Generated for Lory sen/Alla/Marlon on: 11:43 AM CDT
--- OUTSIDE RECORDS SUMMARY | 2024-12-21 08:20 | XMS_ITS ---
Author Organization [facility] Address [address] [place] [address] Care Team Providers Care Radiology Therapist Name Role Phone Mikayla Hernandez Primary Care Provider REASON FOR VISIT r/s from 12/14/24 4 week F/U *must be in office* Social History Sex Assigned At : Social History Observation Description Sex Assigned At Female Encounters Encounter Location Date Provider Diagnosis Replaced By [facility] [address] [place] [address] 12/21/2024 Mikayla Hernandez Plan Of Treatment No Information Progress Notes * Chelsy SENIORDOB: (69 yo F)Acc No.[id number]:12/21/2024 UNLOCKED PROGRESS NOTE Patient: Chelsy MEDINA Provider: SIVAKUMAR Campbell :1955 A ge:69 Y S ex:Female Date:12/21/2024 Address:[address], [id number] Subjective: * Chief Complaints: * 1 . r/s from 12/14/24 4 week F/U *must be in office*. * Medical History: Objective: * Vitals: Assessment: Plan: * Treatment: * * Electronic signature of Mikayla Hernandez , [id number] on 01/08/2025 at 11:44 AM CDT Sign off status: Pending * Provider: SIVAKUMAR Campbell Date: Generated for Lory sen/Alla/Armidaitting on: 1 11:44 AM CDT
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
--- NOTE | ~2025-01-08 | US_ITS ---
EXAMINATION: US venous doppler LE RT DATE: 01/08/2025 12:40 INDICATION: Right lower limb swelling TECHNIQUE: Grayscale ultrasound images without and with compression and Doppler ultrasound images of the right lower extremity veins were obtained. COMPARISON: None. FINDINGS: The visualized portions of right common femoral vein, profunda (deep) femoral vein, femoral vein, popliteal vein, peroneal trunk, posterior tibial veins, peroneal veins, gastrocnemius vein and greater saphenous vein outflow are patent. IMPRESSION: 1. No deep venous thrombosis in the right lower limb. Reviewed, dictated and finalized at location A.
--- OUTSIDE RECORDS SUMMARY | 2025-01-08 11:44 | XMS_ITS | Patient Health Record ---
Author Organization [facility] Address [address] [place] [address] Care Team Providers Care Change Management Manager Name Role Phone Mikayla Hernandez Primary Care Provider Yoana Leyva Unavailable [phone] Philly Del Rio Unavailable Larry Olmos Unavailable [phone] Allergies Allergen (clinical drug ingredient) Drug/Non Drug Allergy documented on EMR Reaction Allergy Type Onset Date Status Citlalli greens citlalli greens (uncoded) nausea and vomiting Allergy Active morphine Morphine rash Drug Allergy Active Reason For Referral No Information Medications Medication SIG (Take, Route, Frequency, Duration) Notes Start Date End Date Status FLUoxetine HCl 40 MG 1 capsule Orally on ce nightly at bedtime; Duration: 30 days Active Vitamin E 180 MG (400 UNIT) as directed Orally Active clonazePAM 1 MG 1 tablet Orally 3 times a day; Duration: 30 days As needed for anxiety 12/28/2024 Active Calcium 600 MG 1 tablet with meals Orally Twice a day Active traZODone HCl 50 MG 1-2 tablets at bedtime Orally Once a day; Duration: 30 days As needed for sleep Active Potassium 99 MG 1 tablet Orally Once a day Active busPIRone HCl 30 MG 1 tablet in the morn ing and 1 tablet in the evening Orally Twice a day; Duration: 30 days Active Hair Skin & Nails Advanced - as directed Orally Active Vitamin C 500 MG 1 tablet Orally Once a day Active Vitamin D3 50 MCG (2000 UT) 1 tablet Ora lly Once a day Active clonazePAM 1 MG 1 tablet Orally 3 times a day; Duration: 8 days As needed 12/07/2024 Active Nicotine Polacrilex 2 MG as directed Mouth/Throat 4 times a day; Duration: 30 days As needed 12/30/2024 Active Ibuprofen 800 MG 1 tablet with food o r milk as needed Orally every 8 hrs Active Famotidine 40 MG 1 tablet as needed Orally Once a day Active Gabapentin 300 MG 1 capsule Orally at bedtime to assist with sleep/anxiety; Duration: 30 days Active FLUoxetine HCl 10 MG 1 capsule Orally On ce a day; Duration: 30 day(s) 12/28/2024 Active Lisinopril 10 MG 1 tablet Orally Once a day Active traMADol HCl 50 MG 1 tablet as needed Orally Once a day Active hydroCHLOROthiazide 25 MG 1 tablet in the morning Orally Once a day As needed Active Aspirin 81 Active Gabapentin 300 MG 1 capsule Orally twice a day; Duration: 30 days As needed for pain or to sleep Active Vitamin B-12 2500 MCG as directed Sublingual Active busPIRone HCl 15 MG 1 tablet once daily in the afternoon Orally Once a day; Duration: 30 days Active Fish Oil N[place]isa-3 1000 MG 1 capsule Orall y Once a day Active Ce Allergy 180 MG 1 tablet Orally O nce a day Active Womens 50+ Multi Vitamin Active Social History Tobacco Use: Social History Observation Description Date Details (start date - stop date) Current Smoker NA - NA Sex Assigned At : Social History Observation Description Sex Assigned At Female Tobacco Control (Standard) Question Answer Notes Tobacco use: Current smoker Section Notes: Social History- location- [place] Current home- [place] Describe childhood- I had a good childhood Abuse/Trauma-no none of that Education- High School, some colleage- dropped out when . 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 lives alone. Siblings? Children? 50 you daughter, 20 year old granddaughter. Legal History- no cases/probation Substance Use- sober from ETOH, no cannabis, street drugs. Social History- location- [place] Current home- [place] Describe childhood- I had a good childhood Abuse/Trauma-no none of that Education- High School, some colleage- dropped out when . Occupation- [employer] retiree, SSDI for obesity and pain Hobbies/Interests- likes make up and getting dressed up, Spiritual Affiliation- Yarsani and attends mormonism Who lives at home? lives alone. Siblings? Children? 50 you daughter, 20 year old granddaughter. Legal History- no cases/probation Substance Use- sober from ETOH, no cannabis, street drugs. Social History- location- [place] Current home- [place] Describe childhood- I had a good childhood Abuse/Trauma-no none of that Education- High School, some colleage- dropped out when . 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 lives alone. Siblings? Children? 50 you daughter, 20 year old granddaughter. Legal History- no cases/probation Substance Use- sober from ETOH, no cannabis, street drugs. Social History- location- [place] Current home- [place] Describe childhood- I had a good childhood Abuse/Trauma-no none of that Education- High School, some colleage- dropped out when . 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 lives alone. Siblings? Children? 50 you daughter, 20 year old granddaughter. Legal History- no cases/probation Substance Use- sober from ETOH, no cannabis, street drugs. Problems Problem Type SNOMED Code ICD Code Onset Dates Problem Status W/U Status Risk Notes Problem Depression (209559245) Depression (F32.9) Active confirmed Problem Anxiety (42955009) Anxiety (F41.9) Active confirmed Problem Benzodiazepine dependence (753807682) Benzodiazepine dependence (F13.20) Active confirmed Problem Nicotine dependence (08624261) Nicotine dependence (F17.200) Active confirmed Problem Chronic alcoholism in remission (disorder) (396766709) Alcohol use disorder in remission (F10.91) Active confirmed Vital Signs Heart Rate 87 /min 12/28/2024 Respiratory Rate 16 /min 12/28/2024 Oximetry 98 % 12/28/2024 Blood pressure diastolic 80 mm Hg 12/28/2024 Height 67 in 12/28/2024 Blood pressure systolic 128 mm Hg 12/28/2024 Weight 188.5 lbs 12/28/2024 BMI 29.52 kg/m2 12/28/2024 Encounters Encounter Location Date Provider Diagnosis [facility] [address] [place] [address] 09/17/2024 Philly Del Rio [facility] [address] [place] [address] 12/28/2024 Mikayla David Depression F32.9 ; Anxiety F41.9 ; Benzodiazepine dependence F13.20 ; Alcohol use disorder in remission F10.91 ; Nicotine dependence F17.200 and Fatigue R53.[address] [address] 01/22/2024 Larry Olmos Depression F32.9 ; Anxiety F41.9 ; Alcohol use disorder in remission F10.91 and Nutritional counseling Z71.[address] [place] [address] 02/04/2024 Larry Olmos Depression F32.9 ; Anxiety F41.9 ; Alcohol use disorder in remission F10.91 and Nutritional counseling Z71.[address] [address] 02/19/2024 Larry Olmos Depression F32.9 ; Anxiety F41.9 ; Alcohol use disorder in remission F10.91 and Nutritional counseling Z71.[address] [place] [address] 03/03/2024 Larry Olmos Depression F32.9 ; Anxiety F41.9 ; Alcohol use disorder in remission F10.91 ; Nicotine dependence F17.200 and Nutritional counseling Z71.[address] [address] 03/25/2024 Larry Olmos Depression F32.9 ; Anxiety F41.9 ; Alcohol use disorder in remission F10.91 ; Nicotine dependence F17.200 and Nutritional counseling Z71.[address] [address] 04/07/2024 Larry Olmos Depression F32.9 ; Anxiety F41.9 ; Alcohol use disorder in remission F10.91 ; Nicotine dependence F17.200 and Nutritional counseling Z71.[address] [address] 04/21/2024 Larry Olmos Depression F32.9 ; Anxiety F41.9 ; Alcohol use disorder in remission F10.91 ; Nicotine dependence F17.200 and Nutritional counseling Z71.[address] [address] 05/05/2024 Larry Olmos Depression F32.9 ; Anxiety F41.9 ; Alcohol use disorder in remission F10.91 ; Nicotine dependence F17.200 and Nutritional counseling Z71.[address] [address] 05/19/2024 Larry Olmos Depression F32.9 ; Anxiety F41.9 ; Benzodiazepine dependence F13.20 ; Alcohol use disorder in remission F10.91 ; Nicotine dependence F17.200 and Nutritional counseling Z71.[address] [address] 06/09/2024 Larry Olmos Depression F32.9 ; Anxiety F41.9 ; Benzodiazepine dependence F13.20 ; Alcohol use disorder in remission F10.91 ; Nicotine dependence F17.200 and Nutritional counseling Z71.[address] [address] 06/24/2024 Larry Olmos Depression F32.9 ; Anxiety F41.9 ; Benzodiazepine dependence F13.20 ; Alcohol use disorder in remission F10.91 ; Nicotine dependence F17.200 and Nutritional counseling Z71.[address] [address] 07/02/2024 Larry Olmos Depression F32.9 ; Anxiety F41.9 ; Benzodiazepine dependence F13.20 ; Alcohol use disorder in remission F10.91 ; Nicotine dependence F17.200 and Nutritional counseling Z71.[address] [address] 07/15/2024 Larry Olmos Depression F32.9 ; Anxiety F41.9 ; Benzodiazepine dependence F13.20 ; Alcohol use disorder in remission F10.91 ; Nicotine dependence F17.200 and Nutritional counseling Z71.[address] [address] 07/30/2024 Larry Olmos Depression F32.9 ; Anxiety F41.9 ; Benzodiazepine dependence F13.20 ; Alcohol use disorder in remission F10.91 ; Nicotine dependence F17.200 and Nutritional counseling Z71.[address] [address] 08/13/2024 Larry Olmos Depression F32.9 ; Anxiety F41.9 ; Benzodiazepine dependence F13.20 ; Alcohol use disorder in remission F10.91 ; Nicotine dependence F17.200 and Nutritional counseling Z71.[address] [address] 08/20/2024 Mikayla David Depression F32.9 ; Anxiety F41.9 ; Benzodiazepine dependence F13.20 ; Alcohol use disorder in remission F10.91 ; Nicotine dependence F17.200 and Nutritional counseling Z71.[address] [address] 09/08/2024 Mikayla Crivitz Depression F32.9 ; Anxiety F41.9 ; Benzodiazepine dependence F13.20 ; Alcohol use disorder in remission F10.91 ; Nicotine dependence F17.200 ; Nutritional counseling Z71.3 and Fatigue R53.[address] [address] 11/04/2024 Mikayla David Depression F32.9 ; Anxiety F41.9 ; Benzodiazepine dependence F13.20 ; Alcohol use disorder in remission F10.91 ; Nicotine dependence F17.200 ; Nutritional counseling Z71.3 and Fatigue R53.[address] [address] 01/23/2024 Larry Olmos [address] [address] 03/17/2024 Larry Olmos Anxiety F41.9 [facility] [address] [place] [address] 03/24/2024 Larry Olmos Anxiety F41.[address] [place] [address] 04/13/2024 Larry Olmos Anxiety F41.[address] [place] [address] 04/27/2024 Larry Olmos Anxiety F41.[address] [place] [address] 07/28/2024 Larry Olmos Anxiety F41.9 [facility] [address] [place] [address] 09/01/2024 Mikayla David Anxiety F41.9 [facility] [address] [place] [address] 09/08/2024 Mikayla David [address] [place] [address] 09/09/2024 Mikayla David [address] [place] [address] 10/06/2024 Mikayla David Anxiety F41.9 [facility] [address] [place] [address] 10/12/2024 Yoana Leyva Anxiety F41.9 [facility] [address] [place] [address] [place] [address] 10/19/2024 Mikayla Crivitz Anxiety F41.9 [facility] [address] [place] [address] 10/23/2024 Mikayla Crivitz Anxiety F41.9 [facility] [address] [place] [address] 11/04/2024 Mikayla Crivitz [address] [place] [address] 11/25/2024 Mikayla Crivitz Depression F32.9 and Anxiety F41.9 [facility] [address] [place] [address] [place] [address] 12/07/2024 Mikayla David Anxiety F41.[address] [place] [address] 12/14/2024 Mikayla David Anxiety F41.9 [facility] [address] [place] [address] [place] [address] 12/21/2024 Mikayla David Anxiety F41.9 [facility] [address] [place] [address] 12/24/2024 Mikayla Crivitz Anxiety F41.9 [facility] [address] [place] [address] 12/30/2024 Mikayla Crivitz Nicotine dependence F17.[address] [facility] [place] [address] 12/31/2024 Mikayla David Assessments Encounter Date Diagnosis (ICD Code) Assessment Notes Treatment Notes Treatment Clinical Notes Section Notes 01/22/2024 Depression (ICD-10 - F32.9) See assessment and plan for anxiety 02/19/2024 Depression (ICD-10 - F32.9) See assessment and plan for anxiety 03/03/2024 Depression (ICD-10 - F32.9) See assessment and plan for anxiety 03/17/2024 Anxiety (ICD-10 - F41.9) 03/25/2024 Depression (ICD-10 - F32.9) See assessment and plan for anxiety 04/07/2024 Depression (ICD-10 - F32.9) See assessment and plan for anxiety 04/27/2024 Anxiety (ICD-10 - F41.9) 05/05/2024 Depression (ICD-10 - F32.9) See assessment and plan for anxiety 06/09/2024 Depression (ICD-10 - F32.9) See assessment and plan for anxiety 07/02/2024 Depression (ICD-10 - F32.9) See assessment and plan for anxiety 07/28/2024 Anxiety (ICD-10 - F41.9) 07/30/2024 Depression (ICD-10 - F32.9) See assessment and plan for anxiety 08/13/2024 Depression (ICD-10 - F32.9) See assessment and plan for anxiety 08/20/2024 Depression (ICD-10 - F32.9) 09/08/2024 Depression (ICD-10 - F32.9) 10/06/2024 Anxiety (ICD-10 - F41.9) 10/12/2024 Anxiety (ICD-10 - F41.9) 10/23/2024 Anxiety (ICD-10 - F41.9) 11/04/2024 Depression (ICD-10 - F32.9) 12/24/2024 Anxiety (ICD-10 - F41.9) 05/19/2024 Depression (ICD-10 - F32.9) See assessment and plan for anxiety 04/21/2024 Depression (ICD-10 - F32.9) See assessment and plan for anxiety 04/13/2024 Anxiety (ICD-10 - F41.9) 03/24/2024 Anxiety (ICD-10 - F41.9) 02/04/2024 Depression (ICD-10 - F32.9) See assessment and plan for anxiety 12/14/2024 Anxiety (ICD-10 - F41.9) 09/01/2024 Anxiety (ICD-10 - F41.9) 07/15/2024 Depression (ICD-10 - F32.9) See assessment and plan for anxiety 06/24/2024 Depression (ICD-10 - F32.9) See assessment and plan for anxiety 12/28/2024 Depression (ICD-10 - F32.9) 12/21/2024 Anxiety (ICD-10 - F41.9) 12/07/2024 Anxiety (ICD-10 - F41.9) 12/30/2024 Nicotine dependence (ICD-10 - F17.200) 11/25/2024 Depression (ICD-10 - F32.9) 10/19/2024 Anxiety (ICD-10 - F41.9) 11/25/2024 Anxiety (ICD-10 - F41.9) 12/28/2024 Anxiety (ICD-10 - F41.9) Clonazepam. Now taking 2 -3 mg QD down from 4 mg. . Explained that the goal is use sparingly or not at all and we will go very slow with this taper. Asked to come in person at next visit and to bring all medications. takes buspar 2pm clonizpine and gabapentin at 2pm, 06/24/2024 Anxiety (ICD-10 - F41.9) Duration (acute/chronic), stability (controlled/uncon trolled): Chronic, somewhat controlled with current medication regeimen, able to decrease clonazepam use on most days as previously discussed, still some room for improvement to allow for further decreased clonazepam use, see HPI Current medications/effic acy: Somewhat, room for improvement Previous medication trials: Ambien, Melatonin, Wellbutrin, Sertraline, gabapetin, fluoxetine, buspirone, clonazepam Current/previous therapies: Not currently, doesn't feel therapy is necessary at this time Examination as documented - see pertinent aspects of office visit documentation. Pertinent diagnostics: LABS MONITORED BY PCP Differential diagnoses: Patient taking clonazepam 0.5 tablets 3 times daily (total 1.5 tablets daily) ON MOST DAYS since last appointment, will still sometimes require total of 2 tablets daily, see HPI. RECOMMENDATIONS: DECREASE clonazepam as advised/discussed , will continue TAPERING over time - educated patient/guardian on adverse effects, risks and benefits, as well as alternative treatments INCREASE trazodone as prescribed to assist with sleep - educated patient/guardian on adverse effects, risks and benefits, as well as alternative treatments Continue/modify other medications as prescribed, work on DECREASING clonazepam use as able - educated patient/guardian on adverse effects, risks and benefits, as well as alternative treatments Consume well balanced diet, preferably low in saturated fats (solid at room temperature, such as butter, margarine, Crisco, etc) and low in sodium (<2,000mg per day). Consume plenty of fruits/vegetables , healthy grains/whole grains, unsaturated/healt hy fats (liquid at room temperature, such as olive oil, sunflower seed oil, canola, vegetable, etc.). Exercise regularly - Develop an exercise routine. 30 minutes of moderate exercise (walking at a brisk pace) 5 times per week is recommended. You should work hard enough to cause a sweat but still be able to talk with others while exercising. Exercise improves overall health - improves blood pressure and blood sugar, helps control weight, reduces stress, and improves mood. Practice stress reduction techniques, such as guided imagery, journaling, aromatherapy, acupuncture/acupr essure, deep breathing, etc. Practice healthy sleep hygiene - maintain regular routine, no caffeine after 1PM, no exercise 1-2 hours prior to bedtime, keep bedroom dark and cool, no TV or electronics while in bed. Consider melatonin as needed. Consider cognitive behavioral therapy for insomnia (CBT-I). Consider/Continue therapy. Consider/Continue substance cessation therapy as needed - contact office if desiring medication assisted therapy. Manage co-morbid conditions. Continue monitoring symptoms - report persistent or worsening/concern ing symptoms to the office or go to the ER. For mental health CRISIS, please reach out to [phone] ([employer] Suicide and Crisis Lifeline), 911, go to the emergency department, or contact the [facility] Crisis Unit/Team. Follow up as scheduled in 2 weeks or sooner if necessary. Follow up with PCP and/or other specialists as advised. NEXT STEP: Consider medication adjustments as needed. 07/15/2024 Anxiety (ICD-10 - F41.9) Duration (acute/chronic), stability (controlled/uncon trolled): Chronic, somewhat controlled with current medication regeimen, able to decrease clonazepam use on most days as previously discussed, still some room for improvement to allow for further decreased clonazepam use, see HPI Current medications/effic acy: Somewhat, room for improvement Previous medication trials: Ambien, Melatonin, Wellbutrin, Sertraline, gabapetin, fluoxetine, buspirone, clonazepam Current/previous therapies: Not currently, doesn't feel therapy is necessary at this time Examination as documented - see pertinent aspects of office visit documentation. Pertinent diagnostics: LABS MONITORED BY PCP Differential diagnoses: Patient taking clonazepam 0.5 tablets 3 times daily (total 1.5 tablets daily) ON MOST DAYS since last appointment, will still sometimes require total of 2 tablets daily, see HPI. RECOMMENDATIONS: REINTRODUCE morning and afternoon doses of buspirone as previously prescribed to assist further with anxiety management - CONTINUE clonazepam as advised/discussed , continue TAPERING as able - educated patient/guardian on adverse effects, risks and benefits, as well as alternative treatments Continue/modify other medications as prescribed, work on DECREASING clonazepam use as able - educated patient/guardian on adverse effects, risks and benefits, as well as alternative treatments Consume well balanced diet, preferably low in saturated fats (solid at room temperature, such as butter, margarine, Crisco, etc) and low in sodium (<2,000mg per day). Consume plenty of fruits/vegetables , healthy grains/whole grains, unsaturated/healt hy fats (liquid at room temperature, such as olive oil, sunflower seed oil, canola, vegetable, etc.). Exercise regularly - Develop an exercise routine. 30 minutes of moderate exercise (walking at a brisk pace) 5 times per week is recommended. You should work hard enough to cause a sweat but still be able to talk with others while exercising. Exercise improves overall health - improves blood pressure and blood sugar, helps control weight, reduces stress, and improves mood. Practice stress reduction techniques, such as guided imagery, journaling, aromatherapy, acupuncture/acupr essure, deep breathing, etc. Practice healthy sleep hygiene - maintain regular routine, no caffeine after 1PM, no exercise 1-2 hours prior to bedtime, keep bedroom dark and cool, no TV or electronics while in bed. Consider melatonin as needed. Consider cognitive behavioral therapy for insomnia (CBT-I). Consider/Continue therapy. Consider/Continue substance cessation therapy as needed - contact office if desiring medication assisted therapy. Manage co-morbid conditions. Continue monitoring symptoms - report persistent or worsening/concern ing symptoms to the office or go to the ER. For mental health CRISIS, please reach out to [phone] (National Suicide and Crisis Lifeline), 911, go to the emergency department, or contact the [facility] Crisis Unit/Team. Follow up as scheduled in 2 weeks or sooner if necessary. Follow up with PCP and/or other specialists as advised. NEXT STEP: Consider medication adjustments as needed. 02/04/2024 Anxiety (ICD-10 - F41.9) Duration (acute/chronic), stability (controlled/uncon trolled): Chronic, mildly uncontrolled, room for improvement - slightly improved with recent addition of gabapentin Current medications/effic acy: Somewhat, room for improvement Previous medication trials: Ambien, Melatonin, Wellbutrin, Sertraline Current/previous therapies: Not discussed during appointment due to time constraints - will discuss at future visit Examination as documented - see pertinent aspects of office visit documentation. Pertinent diagnostics: LABS MONITORED BY PCP Differential diagnoses: RECOMMENDATIONS: INCREASE gabapentin as prescribed to assist with sleep/anxiety/maria alejandra n - educated patient/guardian on adverse effects, risks and benefits, as well as alternative treatments CONTINUE fluoxetine as prescribed, take once nightly at discussed during appointment - educated patient/guardian on adverse effects, risks and benefits, as well as alternative treatments CONTINUE buspirone as prescribed - educated patient/guardian on adverse effects, risks and benefits, as well as alternative treatments Continue/modify other medications as prescribed, work on DECREASING clonazepam use as able - educated patient/guardian on adverse effects, risks and benefits, as well as alternative treatments Consume well balanced diet, preferably low in saturated fats (solid at room temperature, such as butter, margarine, Crisco, etc) and low in sodium (<2,000mg per day). Consume plenty of fruits/vegetables , healthy grains/whole grains, unsaturated/healt hy fats (liquid at room temperature, such as olive oil, sunflower seed oil, canola, vegetable, etc.). Exercise regularly - Develop an exercise routine. 30 minutes of moderate exercise (walking at a brisk pace) 5 times per week is recommended. You should work hard enough to cause a sweat but still be able to talk with others while exercising. Exercise improves overall health - improves blood pressure and blood sugar, helps control weight, reduces stress, and improves mood. Practice stress reduction techniques, such as guided imagery, journaling, aromatherapy, acupuncture/acupr essure, deep breathing, etc. Practice healthy sleep hygiene - maintain regular routine, no caffeine after 1PM, no exercise 1-2 hours prior to bedtime, keep bedroom dark and cool, no TV or electronics while in bed. Consider melatonin as needed. Consider cognitive behavioral therapy for insomnia (CBT-I). Consider/Continue therapy. Consider/Continue substance cessation therapy as needed - contact office if desiring medication assisted therapy. Manage co-morbid conditions. Continue monitoring symptoms - report persistent or worsening/concern ing symptoms to the office or go to the ER. For mental health CRISIS, please reach out to [phone] (National Suicide and Crisis Lifeline), 911, go to the emergency department, or contact the [facility] Crisis Unit/Team. Follow up as scheduled in 2 weeks or sooner if necessary. Follow up with PCP and/or other specialists as advised. NEXT STEP: Consider increasing fluoxetine as needed. Consider increasing buspirone as needed. Consider increasing gabapentin as needed. Consider adding propranolol as needed. Consider adding SNRI as needed. 04/21/2024 Anxiety (ICD-10 - F41.9) Duration (acute/chronic), stability (controlled/uncon trolled): Chronic, slight improvement with recent medication adjustments, still some room for improvement, patient not wanting to make medication adjustments at this time, see HPI Current medications/effic acy: Somewhat, still some room for improvement Previous medication trials: Ambien, Melatonin, Wellbutrin, Sertraline Current/previous therapies: Not currently, doesn't feel therapy is necessary at this time Examination as documented - see pertinent aspects of office visit documentation. Pertinent diagnostics: LABS MONITORED BY PCP Differential diagnoses: RECOMMENDATIONS: CONTINUE buspirone as prescribed to assist with anxiety/depressio n, 30mg in the AM, 15mg in the afternoon, and 15mg in the PM (aware that she can increase to 30mg in the AM/PM, 15mg in the afternoon) - educated patient/guardian on adverse effects, risks and benefits, as well as alternative treatments CONTINUE decreased dose of clonazepam (0.5 tablet/1mg 1-2 times daily PRN) as advised/prescribe d, will continue TAPERING over time - educated patient/guardian on adverse effects, risks and benefits, as well as alternative treatments Continue/modify other medications as prescribed, work on DECREASING clonazepam use as able - educated patient/guardian on adverse effects, risks and benefits, as well as alternative treatments Consume well balanced diet, preferably low in saturated fats (solid at room temperature, such as butter, margarine, Crisco, etc) and low in sodium (<2,000mg per day). Consume plenty of fruits/vegetables , healthy grains/whole grains, unsaturated/healt hy fats (liquid at room temperature, such as olive oil, sunflower seed oil, canola, vegetable, etc.). Exercise regularly - Develop an exercise routine. 30 minutes of moderate exercise (walking at a brisk pace) 5 times per week is recommended. You should work hard enough to cause a sweat but still be able to talk with others while exercising. Exercise improves overall health - improves blood pressure and blood sugar, helps control weight, reduces stress, and improves mood. Practice stress reduction techniques, such as guided imagery, journaling, aromatherapy, acupuncture/acupr essure, deep breathing, etc. Practice healthy sleep hygiene - maintain regular routine, no caffeine after 1PM, no exercise 1-2 hours prior to bedtime, keep bedroom dark and cool, no TV or electronics while in bed. Consider melatonin as needed. Consider cognitive behavioral therapy for insomnia (CBT-I). Consider/Continue therapy. Consider/Continue substance cessation therapy as needed - contact office if desiring medication assisted therapy. Manage co-morbid conditions. Continue monitoring symptoms - report persistent or worsening/concern ing symptoms to the office or go to the ER. For mental health CRISIS, please reach out to [phone] ([employer] [facility]), 911, go to the emergency department, or contact the [facility] Crisis Unit/Team. Follow up as scheduled in 2 weeks or sooner if necessary. Follow up with PCP and/or other specialists as advised. NEXT STEP: Consider increasing fluoxetine as needed. Consider increasing buspirone as needed. Consider increasing gabapentin as needed. Consider adding propranolol as needed. Consider adding SNRI as needed. 05/19/2024 Anxiety (ICD-10 - F41.9) Duration (acute/chronic), stability (controlled/uncon trolled): Chronic, noticeable improvement since furnace has been replaced, medications working well for patient currently, see HPI Current medications/effic acy: Yes Previous medication trials: Ambien, Melatonin, Wellbutrin, Sertraline Current/previous therapies: Not currently, doesn't feel therapy is necessary at this time Examination as documented - see pertinent aspects of office visit documentation. Pertinent diagnostics: LABS MONITORED BY PCP Differential diagnoses: Patient still taking clonazepam 2mg twice daily most days - generally taking 0.5 tablet in the morning, 0.5 tablet in the afternoon, and 1 tablet in the evening. 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 Patient agreeable to attempting to decrease clonazepam use as discussed - 0.5 tablet in the morning, afternoon and evening (total 1.5 tablets daily rather than 2 tablet daily). Agreeable to continuing other medications as prescribed. Agreeable to following up in 3 weeks, sooner if necessary - provider offered 4 week follow up but patient prefers 3 week follow up at this time. RECOMMENDATIONS: DECREASE clonazepam as advised/discussed , will continue TAPERING over time - educated patient/guardian on adverse effects, risks and benefits, as well as alternative treatments Continue/modify other medications as prescribed, work on DECREASING clonazepam use as able - educated patient/guardian on adverse effects, risks and benefits, as well as alternative treatments Consume well balanced diet, preferably low in saturated fats (solid at room temperature, such as butter, margarine, Crisco, etc) and low in sodium (<2,000mg per day). Consume plenty of fruits/vegetables , healthy grains/whole grains, unsaturated/healt hy fats (liquid at room temperature, such as olive oil, sunflower seed oil, canola, vegetable, etc.). Exercise regularly - Develop an exercise routine. 30 minutes of moderate exercise (walking at a brisk pace) 5 times per week is recommended. You should work hard enough to cause a sweat but still be able to talk with others while exercising. Exercise improves overall health - improves blood pressure and blood sugar, helps control weight, reduces stress, and improves mood. Practice stress reduction techniques, such as guided imagery, journaling, aromatherapy, acupuncture/acupr essure, deep breathing, etc. Practice healthy sleep hygiene - maintain regular routine, no caffeine after 1PM, no exercise 1-2 hours prior to bedtime, keep bedroom dark and cool, no TV or electronics while in bed. Consider melatonin as needed. Consider cognitive behavioral therapy for insomnia (CBT-I). Consider/Continue therapy. Consider/Continue substance cessation therapy as needed - contact office if desiring medication assisted therapy. Manage co-morbid conditions. Continue monitoring symptoms - report persistent or worsening/concern ing symptoms to the office or go to the ER. For mental health CRISIS, please reach out to [phone] ([employer] Suicide and Crisis Lif[facility]), 911, go to the emergency department, or contact the [facility] Crisis Unit/Team. Follow up as scheduled in 3 weeks or sooner if necessary. Follow up with PCP and/or other specialists as advised. NEXT STEP: Consider medication adjustments as needed. 05/19/2024 Benzodiazepine dependence (ICD-10 - F13.20) See assessment and plan for anxiety 11/04/2024 Anxiety (ICD-10 - F41.9) Clonazepam. Now taking 2 -3 mg QD down from 4 mg. . Explained that the goal is use sparingly or not at all and we will go very slow with this taper. Asked to come in person at next visit and to bring all medications. 09/08/2024 Anxiety (ICD-10 - F41.9) Chelsy is agreeable to change to the clonazepam 1 mg tabs in order for us to keep better track of how much she uses and ease of not having to cut up the pills. States she is using 4 mg daily. Explained that the goal is use sparingly or not at all and we will go very slow with this taper. Asked to come in person at next visit and to bring all medications. [facility]01 prescribing 2 mg TID =6 mg daily dose Tess Olmos to RX 2 mg BID but asks client to take 0.5 tab (1 mg) TID and then another 1mg PRN. essentially 3 mg plus 1 mg= 4 mg daily States she is using 4 mg daily. Explained that this may change at next visit when it is time to refill. Asked to come in person at next visit and to bring all medications. 09/08/2024 Benzodiazepine dependence (ICD-10 - F13.20) clonazepam use per [facility] PCP 01/01 prescribing 2 mg TID Rx reduced to 2 mg BID by Tess Olmos. 08/20/2024 Anxiety (ICD-10 - F41.9) clonazepam use per [facility] PCP 01/01 prescribing 2 mg TID =6 mg daily dose Tess Olmos to RX 2 mg BID but asks client to take 0.5 tab (1 mg) TID and then another 1mg PRN. essentially 3 mg plus 1 mg= 4 mg daily Client was very anxious and adament I do not change her medication from 2 mg to 1 mg tablets as she is comfortable with above routine. States she i susing 4 mg daily. Explained that this may change at next visit when it is time to refill. Asked to come in person at next visit and to bring all medications. Need to further explore PRN use of benzo and gabapentin Stop Ambien- discussed risks with this drug. Chelsy agrees to try trazadone 100mg QHS. 08/13/2024 Anxiety (ICD-10 - F41.9) Duration (acute/chronic), stability (controlled/uncon trolled): Chronic, somewhat controlled with current medication regeimen, able to decrease clonazepam use on most days as previously discussed, still some room for improvement to allow for further decreased clonazepam use, but stable on current medications as prescribed, see HPI Current medications/effic acy: Somewhat, room for improvement Previous medication trials: Ambien, Melatonin, Wellbutrin, Sertraline, gabapetin, fluoxetine, buspirone, clonazepam Current/previous therapies: Not currently, doesn't feel therapy is necessary at this time Examination as documented - see pertinent aspects of office visit documentation. Pertinent diagnostics: LABS MONITORED BY PCP Differential diagnoses: Patient taking clonazepam 0.5 tablets 3 times daily (total 1.5 tablets daily) ON MOST DAYS since last appointment, will still sometimes require total of 2 tablets daily, see HPI. RECOMMENDATIONS: CONTINUE clonazepam as advised/discussed , continue TAPERING as able - educated patient/guardian on adverse effects, risks and benefits, as well as alternative treatments Continue/modify other medications as prescribed, work on DECREASING clonazepam use as able - educated patient/guardian on adverse effects, risks and benefits, as well as alternative treatments Consume well balanced diet, preferably low in saturated fats (solid at room temperature, such as butter, margarine, Crisco, etc) and low in sodium (<2,000mg per day). Consume plenty of fruits/vegetables , healthy grains/whole grains, unsaturated/healt hy fats (liquid at room temperature, such as olive oil, sunflower seed oil, canola, vegetable, etc.). Exercise regularly - Develop an exercise routine. 30 minutes of moderate exercise (walking at a brisk pace) 5 times per week is recommended. You should work hard enough to cause a sweat but still be able to talk with others while exercising. Exercise improves overall health - improves blood pressure and blood sugar, helps control weight, reduces stress, and improves mood. Practice stress reduction techniques, such as guided imagery, journaling, aromatherapy, acupuncture/acupr essure, deep breathing, etc. Practice healthy sleep hygiene - maintain regular routine, no caffeine after 1PM, no exercise 1-2 hours prior to bedtime, keep bedroom dark and cool, no TV or electronics while in bed. Consider melatonin as needed. Consider cognitive behavioral therapy for insomnia (CBT-I). Consider/Continue therapy. Consider/Continue substance cessation therapy as needed - contact office if desiring medication assisted therapy. Manage co-morbid conditions. Continue monitoring symptoms - report persistent or worsening/concern ing symptoms to the office or go to the ER. For mental health CRISIS, please reach out to [phone] (National Suicide and Crisis Lif[facility]), 911, go to the emergency department, or contact the [facility] Crisis Unit/Team. Follow up as scheduled in 2 weeks or sooner if necessary. Follow up with PCP and/or other specialists as advised. NEXT STEP: Consider medication adjustments as needed. 07/30/2024 Anxiety (ICD-10 - F41.9) Duration (acute/chronic), stability (controlled/uncon trolled): Chronic, somewhat controlled with current medication regeimen, able to decrease clonazepam use on most days as previously discussed, still some room for improvement to allow for further decreased clonazepam use, see HPI Current medications/effic acy: Somewhat, room for improvement Previous medication trials: Ambien, Melatonin, Wellbutrin, Sertraline, gabapetin, fluoxetine, buspirone, clonazepam Current/previous therapies: Not currently, doesn't feel therapy is necessary at this time Examination as documented - see pertinent aspects of office visit documentation. Pertinent diagnostics: LABS MONITORED BY PCP Differential diagnoses: Patient taking clonazepam 0.5 tablets 3 times daily (total 1.5 tablets daily) ON MOST DAYS since last appointment, will still sometimes require total of 2 tablets daily, see HPI. RECOMMENDATIONS: CONTINUE clonazepam as advised/discussed , continue TAPERING as able - educated patient/guardian on adverse effects, risks and benefits, as well as alternative treatments Continue/modify other medications as prescribed, work on DECREASING clonazepam use as able - educated patient/guardian on adverse effects, risks and benefits, as well as alternative treatments Consume well balanced diet, preferably low in saturated fats (solid at room temperature, such as butter, margarine, Crisco, etc) and low in sodium (<2,000mg per day). Consume plenty of fruits/vegetables , healthy grains/whole grains, unsaturated/healt hy fats (liquid at room temperature, such as olive oil, sunflower seed oil, canola, vegetable, etc.). Exercise regularly - Develop an exercise routine. 30 minutes of moderate exercise (walking at a brisk pace) 5 times per week is recommended. You should work hard enough to cause a sweat but still be able to talk with others while exercising. Exercise improves overall health - improves blood pressure and blood sugar, helps control weight, reduces stress, and improves mood. Practice stress reduction techniques, such as guided imagery, journaling, aromatherapy, acupuncture/acupr essure, deep breathing, etc. Practice healthy sleep hygiene - maintain regular routine, no caffeine after 1PM, no exercise 1-2 hours prior to bedtime, keep bedroom dark and cool, no TV or electronics while in bed. Consider melatonin as needed. Consider cognitive behavioral therapy for insomnia (CBT-I). Consider/Continue therapy. Consider/Continue substance cessation therapy as needed - contact office if desiring medication assisted therapy. Manage co-morbid conditions. Continue monitoring symptoms - report persistent or worsening/concern ing symptoms to the office or go to the ER. For mental health CRISIS, please reach out to [phone] ([employer] [facility]), 911, go to the emergency department, or contact the [facility] Crisis Unit/Team. Follow up as scheduled in 2 weeks or sooner if necessary. Follow up with PCP and/or other specialists as advised. NEXT STEP: Consider medication adjustments as needed. 07/02/2024 Anxiety (ICD-10 - F41.9) Duration (acute/chronic), stability (controlled/uncon trolled): Chronic, somewhat controlled with current medication regeimen, able to decrease clonazepam use on most days as previously discussed, still some room for improvement to allow for further decreased clonazepam use, see HPI Current medications/effic acy: Somewhat, room for improvement Previous medication trials: Ambien, Melatonin, Wellbutrin, Sertraline, gabapetin, fluoxetine, buspirone, clonazepam Current/previous therapies: Not currently, doesn't feel therapy is necessary at this time Examination as documented - see pertinent aspects of office visit documentation. Pertinent diagnostics: LABS MONITORED BY PCP Differential diagnoses: Patient taking clonazepam 0.5 tablets 3 times daily (total 1.5 tablets daily) ON MOST DAYS since last appointment, will still sometimes require total of 2 tablets daily, see HPI. RECOMMENDATIONS: DECREASE clonazepam as advised/discussed , will continue TAPERING over time - educated patient/guardian on adverse effects, risks and benefits, as well as alternative treatments INCREASE gabapentin as prescribed to assist with sleep, can decrease if necessary as discussed - educated patient/guardian on adverse effects, risks and benefits, as well as alternative treatments INCREASE trazodone as prescribed to assist with sleep - educated patient/guardian on adverse effects, risks and benefits, as well as alternative treatments Continue/modify other medications as prescribed, work on DECREASING clonazepam use as able - educated patient/guardian on adverse effects, risks and benefits, as well as alternative treatments Consume well balanced diet, preferably low in saturated fats (solid at room temperature, such as butter, margarine, Crisco, etc) and low in sodium (<2,000mg per day). Consume plenty of fruits/vegetables , healthy grains/whole grains, unsaturated/healt hy fats (liquid at room temperature, such as olive oil, sunflower seed oil, canola, vegetable, etc.). Exercise regularly - Develop an exercise routine. 30 minutes of moderate exercise (walking at a brisk pace) 5 times per week is recommended. You should work hard enough to cause a sweat but still be able to talk with others while exercising. Exercise improves overall health - improves blood pressure and blood sugar, helps control weight, reduces stress, and improves mood. Practice stress reduction techniques, such as guided imagery, journaling, aromatherapy, acupuncture/acupr essure, deep breathing, etc. Practice healthy sleep hygiene - maintain regular routine, no caffeine after 1PM, no exercise 1-2 hours prior to bedtime, keep bedroom dark and cool, no TV or electronics while in bed. Consider melatonin as needed. Consider cognitive behavioral therapy for insomnia (CBT-I). Consider/Continue therapy. Consider/Continue substance cessation therapy as needed - contact office if desiring medication assisted therapy. Manage co-morbid conditions. Continue monitoring symptoms - report persistent or worsening/concern ing symptoms to the office or go to the ER. For mental health CRISIS, please reach out to [phone] (National Suicide and Crisis Lifeline), 911, go to the emergency department, or contact the [facility] Crisis Unit/Team. Follow up as scheduled in 2 weeks or sooner if necessary. Follow up with PCP and/or other specialists as advised. NEXT STEP: Consider medication adjustments as needed. 06/09/2024 Anxiety (ICD-10 - F41.9) Duration (acute/chronic), stability (controlled/uncon trolled): Chronic, somewhat controlled with current medication regeimen, having some difficulties with cutting back on clonazepam, also having difficulties staying asleep, also dealing with some family conflict at the moment, see HPI Current medications/effic acy: Somewhat, room for improvement Previous medication trials: Ambien, Melatonin, Wellbutrin, Sertraline, gabapetin, fluoxetine, buspirone, clonazepam Current/previous therapies: Not currently, doesn't feel therapy is necessary at this time Examination as documented - see pertinent aspects of office visit documentation. Pertinent diagnostics: LABS MONITORED BY PCP Differential diagnoses: Patient taking clonazepam 0.5 tablets 3 times daily (total 1.5 tablets daily) ON MOST DAYS since last appointment, will still sometimes require total of 2 tablets daily, see HPI. RECOMMENDATIONS: DECREASE clonazepam as advised/discussed , will continue TAPERING over time - educated patient/guardian on adverse effects, risks and benefits, as well as alternative treatments INCREASE buspirone as prescribed to assist with anxiety/depressio n - educated patient/guardian on adverse effects, risks and benefits, as well as alternative treatments START trazodone as prescribed to assist with sleep - educated patient/guardian on adverse effects, risks and benefits, as well as alternative treatments Continue/modify other medications as prescribed, work on DECREASING clonazepam use as able - educated patient/guardian on adverse effects, risks and benefits, as well as alternative treatments Consume well balanced diet, preferably low in saturated fats (solid at room temperature, such as butter, margarine, Crisco, etc) and low in sodium (<2,000mg per day). Consume plenty of fruits/vegetables , healthy grains/whole grains, unsaturated/healt hy fats (liquid at room temperature, such as olive oil, sunflower seed oil, canola, vegetable, etc.). Exercise regularly - Develop an exercise routine. 30 minutes of moderate exercise (walking at a brisk pace) 5 times per week is recommended. You should work hard enough to cause a sweat but still be able to talk with others while exercising. Exercise improves overall health - improves blood pressure and blood sugar, helps control weight, reduces stress, and improves mood. Practice stress reduction techniques, such as guided imagery, journaling, aromatherapy, acupuncture/acupr essure, deep breathing, etc. Practice healthy sleep hygiene - maintain regular routine, no caffeine after 1PM, no exercise 1-2 hours prior to bedtime, keep bedroom dark and cool, no TV or electronics while in bed. Consider melatonin as needed. Consider cognitive behavioral therapy for insomnia (CBT-I). Consider/Continue therapy. Consider/Continue substance cessation therapy as needed - contact office if desiring medication assisted therapy. Manage co-morbid conditions. Continue monitoring symptoms - report persistent or worsening/concern ing symptoms to the office or go to the ER. For mental health CRISIS, please reach out to [phone] (National Suicide and Crisis Lifeline), 911, go to the emergency department, or contact the [facility] Crisis Unit/Team. Follow up as scheduled in 3 weeks or sooner if necessary. Follow up with PCP and/or other specialists as advised. NEXT STEP: Consider medication adjustments as needed. 03/03/2024 Alcohol use disorder in remission (ICD-10 - F10.91) Duration (acute/chronic), stability (controlled/uncon trolled): Denies current use - sober for 17 years now, used to drink heavier in the past, I had been an alcoholic for a long time and didn't know it until I started AA, drank heavily for about 10 years then stopped going out when she started nodding in the clubs, then I joined mormonism. - Patient continues going to [employer] and m[employer]onism. Current medications/effic acy: N/A Previous medication trials: N/A Current/previous therapies: Not discussed during appointment due to time constraints - will discuss at future visit Examination as documented - see pertinent aspects of office visit documentation. Pertinent diagnostics: LABS MONITORED BY PCP Differential diagnoses: RECOMMENDATIONS: Consider/Continue therapy. Consider/Continue substance cessation therapy as needed - contact office if desiring medication assisted therapy. Manage co-morbid conditions. Continue monitoring symptoms - report persistent or worsening/concern ing symptoms to the office or go to the ER. For mental health CRISIS, please reach out to [phone] ([employer] [facility]), 911, go to the emergency department, or contact the [facility] Crisis [facility]/Team. Follow up as scheduled or sooner if necessary. Follow up with PCP and/or other specialists as advised. NEXT STEP: Consider MAT as needed. 05/05/2024 Anxiety (ICD-10 - F41.9) Duration (acute/chronic), stability (controlled/uncon trolled): Chronic, noticeable improvement since furnace has been replaced, medications working well for patient currently, see HPI Current medications/effic acy: Somewhat, still some room for improvement Previous medication trials: Ambien, Melatonin, Wellbutrin, Sertraline Current/previous therapies: Not currently, doesn't feel therapy is necessary at this time Examination as documented - see pertinent aspects of office visit documentation. Pertinent diagnostics: LABS MONITORED BY PCP Differential diagnoses: RECOMMENDATIONS: CONTINUE clonazepam as advised/prescribe d, will continue TAPERING over time - educated patient/guardian on adverse effects, risks and benefits, as well as alternative treatments Continue/modify other medications as prescribed, work on DECREASING clonazepam use as able - educated patient/guardian on adverse effects, risks and benefits, as well as alternative treatments Consume well balanced diet, preferably low in saturated fats (solid at room temperature, such as butter, margarine, Crisco, etc) and low in sodium (<2,000mg per day). Consume plenty of fruits/vegetables , healthy grains/whole grains, unsaturated/healt hy fats (liquid at room temperature, such as olive oil, sunflower seed oil, canola, vegetable, etc.). Exercise regularly - Develop an exercise routine. 30 minutes of moderate exercise (walking at a brisk pace) 5 times per week is recommended. You should work hard enough to cause a sweat but still be able to talk with others while exercising. Exercise improves overall health - improves blood pressure and blood sugar, helps control weight, reduces stress, and improves mood. Practice stress reduction techniques, such as guided imagery, journaling, aromatherapy, acupuncture/acupr essure, deep breathing, etc. Practice healthy sleep hygiene - maintain regular routine, no caffeine after 1PM, no exercise 1-2 hours prior to bedtime, keep bedroom dark and cool, no TV or electronics while in bed. Consider melatonin as needed. Consider cognitive behavioral therapy for insomnia (CBT-I). Consider/Continue therapy. Consider/Continue substance cessation therapy as needed - contact office if desiring medication assisted therapy. Manage co-morbid conditions. Continue monitoring symptoms - report persistent or worsening/concern ing symptoms to the office or go to the ER. For mental health CRISIS, please reach out to [phone] (National Suicide and Crisis Lifeline), 911, go to the emergency department, or contact the [facility] Crisis Unit/Team. Follow up as scheduled in 2 weeks or sooner if necessary. Follow up with PCP and/or other specialists as advised. NEXT STEP: Consider increasing fluoxetine as needed. Consider increasing buspirone as needed. Consider increasing gabapentin as needed. Consider adding propranolol as needed. Consider adding SNRI as needed. 04/07/2024 Anxiety (ICD-10 - F41.9) Duration (acute/chronic), stability (controlled/uncon trolled): Chronic, well controlled with current medication regimen despite recent external stressors, see HPI Current medications/effic acy: Stable despite recent external stressors Previous medication trials: Ambien, Melatonin, Wellbutrin, Sertraline Current/previous therapies: Not discussed during appointment due to time constraints - will discuss at future visit Examination as documented - see pertinent aspects of office visit documentation. Pertinent diagnostics: LABS MONITORED BY PCP Differential diagnoses: RECOMMENDATIONS: INCREASE buspirone as prescribed to assist with anxiety/depressio n, 30mg in the AM, 15mg in the afternoon, and 15mg in the PM - educated patient/guardian on adverse effects, risks and benefits, as well as alternative treatments INCREASE fluoxetine as prescribed to assist with anxiety - educated patient/guardian on adverse effects, risks and benefits, as well as alternative treatments CONTINUE decreased dose of clonazepam (0.5 tablet/1mg 1-2 times daily PRN) as advised/prescribe d, will continue TAPERING over time - educated patient/guardian on adverse effects, risks and benefits, as well as alternative treatments Continue/modify other medications as prescribed, work on DECREASING clonazepam use as able - educated patient/guardian on adverse effects, risks and benefits, as well as alternative treatments Consume well balanced diet, preferably low in saturated fats (solid at room temperature, such as butter, margarine, Crisco, etc) and low in sodium (<2,000mg per day). Consume plenty of fruits/vegetables , healthy grains/whole grains, unsaturated/healt hy fats (liquid at room temperature, such as olive oil, sunflower seed oil, canola, vegetable, etc.). Exercise regularly - Develop an exercise routine. 30 minutes of moderate exercise (walking at a brisk pace) 5 times per week is recommended. You should work hard enough to cause a sweat but still be able to talk with others while exercising. Exercise improves overall health - improves blood pressure and blood sugar, helps control weight, reduces stress, and improves mood. Practice stress reduction techniques, such as guided imagery, journaling, aromatherapy, acupuncture/acupr essure, deep breathing, etc. Practice healthy sleep hygiene - maintain regular routine, no caffeine after 1PM, no exercise 1-2 hours prior to bedtime, keep bedroom dark and cool, no TV or electronics while in bed. Consider melatonin as needed. Consider cognitive behavioral therapy for insomnia (CBT-I). Consider/Continue therapy. Consider/Continue substance cessation therapy as needed - contact office if desiring medication assisted therapy. Manage co-morbid conditions. Continue monitoring symptoms - report persistent or worsening/concern ing symptoms to the office or go to the ER. For mental health CRISIS, please reach out to [phone] ([employer] [facility]), 911, go to the emergency department, or contact the [facility] Crisis Unit/Team. Follow up as scheduled in 2 weeks or sooner if necessary. Follow up with PCP and/or other specialists as advised. NEXT STEP: Consider increasing fluoxetine as needed. Consider increasing buspirone as needed. Consider increasing gabapentin as needed. Consider adding propranolol as needed. Consider adding SNRI as needed. 03/25/2024 Anxiety (ICD-10 - F41.9) Duration (acute/chronic), stability (controlled/uncon trolled): Chronic, well controlled with current medication regimen despite recent external stressors, see HPI Current medications/effic acy: Stable despite recent external stressors Previous medication trials: Ambien, Melatonin, Wellbutrin, Sertraline Current/previous therapies: Not discussed during appointment due to time constraints - will discuss at future visit Examination as documented - see pertinent aspects of office visit documentation. Pertinent diagnostics: LABS MONITORED BY PCP Differential diagnoses: RECOMMENDATIONS: CONTINUE decreased dose of clonazepam (0.5 tablet/1mg 1-2 times daily PRN) as advised/prescribe d, will continue TAPERING over time - educated patient/guardian on adverse effects, risks and benefits, as well as alternative treatments Continue/modify other medications as prescribed, work on DECREASING clonazepam use as able - educated patient/guardian on adverse effects, risks and benefits, as well as alternative treatments Consume well balanced diet, preferably low in saturated fats (solid at room temperature, such as butter, margarine, Crisco, etc) and low in sodium (<2,000mg per day). Consume plenty of fruits/vegetables , healthy grains/whole grains, unsaturated/healt hy fats (liquid at room temperature, such as olive oil, sunflower seed oil, canola, vegetable, etc.). Exercise regularly - Develop an exercise routine. 30 minutes of moderate exercise (walking at a brisk pace) 5 times per week is recommended. You should work hard enough to cause a sweat but still be able to talk with others while exercising. Exercise improves overall health - improves blood pressure and blood sugar, helps control weight, reduces stress, and improves mood. Practice stress reduction techniques, such as guided imagery, journaling, aromatherapy, acupuncture/acupr essure, deep breathing, etc. Practice healthy sleep hygiene - maintain regular routine, no caffeine after 1PM, no exercise 1-2 hours prior to bedtime, keep bedroom dark and cool, no TV or electronics while in bed. Consider melatonin as needed. Consider cognitive behavioral therapy for insomnia (CBT-I). Consider/Continue therapy. Consider/Continue substance cessation therapy as needed - contact office if desiring medication assisted therapy. Manage co-morbid conditions. Continue monitoring symptoms - report persistent or worsening/concern ing symptoms to the office or go to the ER. For mental health CRISIS, please reach out to [phone] ([employer] [facility]), 911, go to the emergency department, or contact the [facility] Crisis Unit/Team. Follow up as scheduled in 2 weeks or sooner if necessary. Follow up with PCP and/or other specialists as advised. NEXT STEP: Consider increasing fluoxetine as needed. Consider increasing buspirone as needed. Consider increasing gabapentin as needed. Consider adding propranolol as needed. Consider adding SNRI as needed. 03/03/2024 Anxiety (ICD-10 - F41.9) Duration (acute/chronic), stability (controlled/uncon trolled): Chronic, well controlled with current medication regimen, improved with recent addition of gabapentin during the day, see HPI Current medications/effic acy: Somewhat, room for improvement Previous medication trials: Ambien, Melatonin, Wellbutrin, Sertraline Current/previous therapies: Not discussed during appointment due to time constraints - will discuss at future visit Examination as documented - see pertinent aspects of office visit documentation. Pertinent diagnostics: LABS MONITORED BY PCP Differential diagnoses: RECOMMENDATIONS: CONTINUE decreased dose of clonazepam (0.5 tablet/1mg 1-2 times daily PRN) as advised/prescribe d, will continue TAPERING over time - educated patient/guardian on adverse effects, risks and benefits, as well as alternative treatments Continue/modify other medications as prescribed, work on DECREASING clonazepam use as able - educated patient/guardian on adverse effects, risks and benefits, as well as alternative treatments Consume well balanced diet, preferably low in saturated fats (solid at room temperature, such as butter, margarine, Crisco, etc) and low in sodium (<2,000mg per day). Consume plenty of fruits/vegetables , healthy grains/whole grains, unsaturated/healt hy fats (liquid at room temperature, such as olive oil, sunflower seed oil, canola, vegetable, etc.). Exercise regularly - Develop an exercise routine. 30 minutes of moderate exercise (walking at a brisk pace) 5 times per week is recommended. You should work hard enough to cause a sweat but still be able to talk with others while exercising. Exercise improves overall health - improves blood pressure and blood sugar, helps control weight, reduces stress, and improves mood. Practice stress reduction techniques, such as guided imagery, journaling, aromatherapy, acupuncture/acupr essure, deep breathing, etc. Practice healthy sleep hygiene - maintain regular routine, no caffeine after 1PM, no exercise 1-2 hours prior to bedtime, keep bedroom dark and cool, no TV or electronics while in bed. Consider melatonin as needed. Consider cognitive behavioral therapy for insomnia (CBT-I). Consider/Continue therapy. Consider/Continue substance cessation therapy as needed - contact office if desiring medication assisted therapy. Manage co-morbid conditions. Continue monitoring symptoms - report persistent or worsening/concern ing symptoms to the office or go to the ER. For mental health CRISIS, please reach out to [phone] (National Suicide and Crisis Lifeline), 911, go to the emergency department, or contact the [facility] Crisis Unit/Team. Follow up as scheduled in 4 weeks or sooner if necessary. Follow up with PCP and/or other specialists as advised. NEXT STEP: Consider increasing fluoxetine as needed. Consider increasing buspirone as needed. Consider increasing gabapentin as needed. Consider adding propranolol as needed. Consider adding SNRI as needed. 02/19/2024 Anxiety (ICD-10 - F41.9) Duration (acute/chronic), stability (controlled/uncon trolled): Chronic, mildly uncontrolled, room for improvement - slightly improved with recent addition of gabapentin Current medications/effic acy: Somewhat, room for improvement Previous medication trials: Ambien, Melatonin, Wellbutrin, Sertraline Current/previous therapies: Not discussed during appointment due to time constraints - will discuss at future visit Examination as documented - see pertinent aspects of office visit documentation. Pertinent diagnostics: LABS MONITORED BY PCP Differential diagnoses: RECOMMENDATIONS: INCREASE gabapentin as prescribed to assist with sleep/anxiety/maria alejandra n - educated patient/guardian on adverse effects, risks and benefits, as well as alternative treatments CONTINUE fluoxetine as prescribed, take once nightly at discussed during appointment - educated patient/guardian on adverse effects, risks and benefits, as well as alternative treatments CONTINUE buspirone as prescribed - educated patient/guardian on adverse effects, risks and benefits, as well as alternative treatments Continue/modify other medications as prescribed, work on DECREASING clonazepam use as able - educated patient/guardian on adverse effects, risks and benefits, as well as alternative treatments Consume well balanced diet, preferably low in saturated fats (solid at room temperature, such as butter, margarine, Crisco, etc) and low in sodium (<2,000mg per day). Consume plenty of fruits/vegetables , healthy grains/whole grains, unsaturated/healt hy fats (liquid at room temperature, such as olive oil, sunflower seed oil, canola, vegetable, etc.). Exercise regularly - Develop an exercise routine. 30 minutes of moderate exercise (walking at a brisk pace) 5 times per week is recommended. You should work hard enough to cause a sweat but still be able to talk with others while exercising. Exercise improves overall health - improves blood pressure and blood sugar, helps control weight, reduces stress, and improves mood. Practice stress reduction techniques, such as guided imagery, journaling, aromatherapy, acupuncture/acupr essure, deep breathing, etc. Practice healthy sleep hygiene - maintain regular routine, no caffeine after 1PM, no exercise 1-2 hours prior to bedtime, keep bedroom dark and cool, no TV or electronics while in bed. Consider melatonin as needed. Consider cognitive behavioral therapy for insomnia (CBT-I). Consider/Continue therapy. Consider/Continue substance cessation therapy as needed - contact office if desiring medication assisted therapy. Manage co-morbid conditions. Continue monitoring symptoms - report persistent or worsening/concern ing symptoms to the office or go to the ER. For mental health CRISIS, please reach out to [phone] (National Suicide and Crisis Lifeline), 911, go to the emergency department, or contact the [facility] Crisis Unit/Team. Follow up as scheduled in 2 weeks or sooner if necessary. Follow up with PCP and/or other specialists as advised. NEXT STEP: Consider increasing fluoxetine as needed. Consider increasing buspirone as needed. Consider increasing gabapentin as needed. Consider adding propranolol as needed. Consider adding SNRI as needed. 01/22/2024 Anxiety (ICD-10 - F41.9) Duration (acute/chronic), stability (controlled/uncon trolled): Chronic, mildly uncontrolled, room for improvement - slightly improved with recent increase in buspirone Current medications/effic acy: Somewhat, room for improvement Previous medication trials: Ambien, Melatonin, Wellbutrin, Sertraline Current/previous therapies: Not discussed during appointment due to time constraints - will discuss at future visit Examination as documented - see pertinent aspects of office visit documentation. Pertinent diagnostics: LABS MONITORED BY PCP Differential diagnoses: RECOMMENDATIONS: START gabapentin as prescribed at bedtime to assist with sleep/anxiety/maria alejandra n - educated patient/guardian on adverse effects, risks and benefits, as well as alternative treatments INCREASE fluoxetine as prescribed, take once nightly at discussed during appointment - educated patient/guardian on adverse effects, risks and benefits, as well as alternative treatments CONTINUE buspirone as prescribed - educated patient/guardian on adverse effects, risks and benefits, as well as alternative treatments Continue/modify other medications as prescribed, work on DECREASING clonazepam use as able - educated patient/guardian on adverse effects, risks and benefits, as well as alternative treatments Consume well balanced diet, preferably low in saturated fats (solid at room temperature, such as butter, margarine, Crisco, etc) and low in sodium (<2,000mg per day). Consume plenty of fruits/vegetables , healthy grains/whole grains, unsaturated/healt hy fats (liquid at room temperature, such as olive oil, sunflower seed oil, canola, vegetable, etc.). Exercise regularly - Develop an exercise routine. 30 minutes of moderate exercise (walking at a brisk pace) 5 times per week is recommended. You should work hard enough to cause a sweat but still be able to talk with others while exercising. Exercise improves overall health - improves blood pressure and blood sugar, helps control weight, reduces stress, and improves mood. Practice stress reduction techniques, such as guided imagery, journaling, aromatherapy, acupuncture/acupr essure, deep breathing, etc. Practice healthy sleep hygiene - maintain regular routine, no caffeine after 1PM, no exercise 1-2 hours prior to bedtime, keep bedroom dark and cool, no TV or electronics while in bed. Consider melatonin as needed. Consider cognitive behavioral therapy for insomnia (CBT-I). Consider/Continue therapy. Consider/Continue substance cessation therapy as needed - contact office if desiring medication assisted therapy. Manage co-morbid conditions. Continue monitoring symptoms - report persistent or worsening/concern ing symptoms to the office or go to the ER. For mental health CRISIS, please reach out to [phone] ([employer] [facility]), 911, go to the emergency department, or contact the [facility] Crisis Unit/Team. Follow up as scheduled in 2 weeks or sooner if necessary. Follow up with PCP and/or other specialists as advised. NEXT STEP: Consider increasing fluoxetine as needed. Consider increasing buspirone as needed. Consider adding propranolol as needed. Consider adding SNRI as needed. 01/22/2024 Alcohol use disorder in remission (ICD-10 - F10.91) Duration (acute/chronic), stability (controlled/uncon trolled): Denies current use - sober for 17 years now, used to drink heavier in the past, I had been an alcoholic for a long time and didn't know it until I started AA, drank heavily for about 10 years then stopped going out when she started nodding in the clubs, then I joined mormonism. - Patient continues going to [employer] and mormonism. Current medications/effic acy: N/A Previous medication trials: N/A Current/previous therapies: Not discussed during appointment due to time constraints - will discuss at future visit Examination as documented - see pertinent aspects of office visit documentation. Pertinent diagnostics: LABS MONITORED BY PCP Differential diagnoses: RECOMMENDATIONS: Consider/Continue therapy. Consider/Continue substance cessation therapy as needed - contact office if desiring medication assisted therapy. Manage co-morbid conditions. Continue monitoring symptoms - report persistent or worsening/concern ing symptoms to the office or go to the ER. For mental health CRISIS, please reach out to [phone] ([employer] [facility]), 911, go to the emergency department, or contact the [facility] Crisis Unit/Team. Follow up as scheduled or sooner if necessary. Follow up with PCP and/or other specialists as advised. NEXT STEP: Consider MAT as needed. 02/19/2024 Alcohol use disorder in remission (ICD-10 - F10.91) Duration (acute/chronic), stability (controlled/uncon trolled): Denies current use - sober for 17 years now, used to drink heavier in the past, I had been an alcoholic for a long time and didn't know it until I started AA, drank heavily for about 10 years then stopped going out when she started nodding in the clubs, then I joined mormonism. - Patient continues going to [employer] and mormonism. Current medications/effic acy: N/A Previous medication trials: N/A Current/previous therapies: Not discussed during appointment due to time constraints - will discuss at future visit Examination as documented - see pertinent aspects of office visit documentation. Pertinent diagnostics: LABS MONITORED BY PCP Differential diagnoses: RECOMMENDATIONS: Consider/Continue therapy. Consider/Continue substance cessation therapy as needed - contact office if desiring medication assisted therapy. Manage co-morbid conditions. Continue monitoring symptoms - report persistent or worsening/concern ing symptoms to the office or go to the ER. For mental health CRISIS, please reach out to [phone] ([employer] [facility]), 911, go to the emergency department, or contact the [facility] Crisis Unit/Team. Follow up as scheduled or sooner if necessary. Follow up with PCP and/or other specialists as advised. NEXT STEP: Consider MAT as needed. 03/03/2024 Nicotine dependence (ICD-10 - F17.200) Duration (acute/chronic), stability (controlled/uncon trolled): Chronic, currently smoking 2 cigarettes daily, working on cutting back Current medications/effic acy: N/A Previous medication trials: N/A RECOMMENDATIONS: Consider substance cessation therapy as needed - contact office if desiring medication assisted therapy. Manage co-morbid conditions. Continue monitoring symptoms - report persistent or worsening/concern ing symptoms to the office or go to the ER. For mental health CRISIS, please reach out to [phone] ([employer] Suicide [facility] Crisis Lif[facility]), 911, go to the emergency department, or contact the [facility] Crisis Unit/Team. Follow up as scheduled or sooner if necessary. Follow up with PCP and/or other specialists as advised. NEXT STEP: Consider MAT as needed. 03/25/2024 Alcohol use disorder in remission (ICD-10 - F10.91) Duration (acute/chronic), stability (controlled/uncon trolled): Denies current use - sober for 17 years now, used to drink heavier in the past, I had been an alcoholic for a long time and didn't know it until I started AA, drank heavily for about 10 years then stopped going out when she started nodding in the clubs, then I joined mormonism. - Patient continues going to [employer]. Current medications/effic acy: N/A Previous medication trials: N/A Current/previous therapies: Not discussed during appointment due to time constraints - will discuss at future visit Examination as documented - see pertinent aspects of office visit documentation. Pertinent diagnostics: LABS MONITORED BY PCP Differential diagnoses: RECOMMENDATIONS: Consider/Continue therapy. Consider/Continue substance cessation therapy as needed - contact office if desiring medication assisted therapy. Manage co-morbid conditions. Continue monitoring symptoms - report persistent or worsening/concern ing symptoms to the office or go to the ER. For mental health CRISIS, please reach out to [phone] ([facility] Suicide [facility] Crisis [facility]), 911, go to the emergency department, or contact the [facility] Crisis Unit/Team. Follow up as scheduled or sooner if necessary. Follow up with PCP and/or other specialists as advised. NEXT STEP: Consider MAT as needed. 04/07/2024 Alcohol use disorder in remission (ICD-10 - F10.91) Duration (acute/chronic), stability (controlled/uncon trolled): Denies current use - sober for 17 years now, used to drink heavier in the past, I had been an alcoholic for a long time and didn't know it until I started AA, drank heavily for about 10 years then stopped going out when she started nodding in the clubs, then I joined mormonism. - Patient continues going to [employer]. Current medications/effic acy: N/A Previous medication trials: N/A Current/previous therapies: Not discussed during appointment due to time constraints - will discuss at future visit Examination as documented - see pertinent aspects of office visit documentation. Pertinent diagnostics: LABS MONITORED BY PCP Differential diagnoses: RECOMMENDATIONS: Consider/Continue therapy. Consider/Continue substance cessation therapy as needed - contact office if desiring medication assisted therapy. Manage co-morbid conditions. Continue monitoring symptoms - report persistent or worsening/concern ing symptoms to the office or go to the ER. For mental health CRISIS, please reach out to [phone] ([facility]), 911, go to the emergency department, or contact the [facility] Crisis Unit/Team. Follow up as scheduled or sooner if necessary. Follow up with PCP and/or other specialists as advised. NEXT STEP: Consider MAT as needed. 05/05/2024 Alcohol use disorder in remission (ICD-10 - F10.91) Duration (acute/chronic), stability (controlled/uncon trolled): Denies current use - sober for 17 years now, used to drink heavier in the past, I had been an alcoholic for a long time and didn't know it until I started AA, drank heavily for about 10 years then stopped going out when she started nodding in the clubs, then I joined mormonism. - Patient continues going to [employer] and mormonism. Current medications/effic acy: N/A Previous medication trials: N/A Current/previous therapies: Not discussed during appointment due to time constraints - will discuss at future visit Examination as documented - see pertinent aspects of office visit documentation. Pertinent diagnostics: LABS MONITORED BY PCP Differential diagnoses: RECOMMENDATIONS: Consider/Continue therapy. Consider/Continue substance cessation therapy as needed - contact office if desiring medication assisted therapy. Manage co-morbid conditions. Continue monitoring symptoms - report persistent or worsening/concern ing symptoms to the office or go to the ER. For mental health CRISIS, please reach out to [phone] ([place] [facility]), 911, go to the emergency department, or contact the [facility] Crisis Unit/Team. Follow up as scheduled or sooner if necessary. Follow up with PCP and/or other specialists as advised. NEXT STEP: Consider MAT as needed. 06/09/2024 Benzodiazepine dependence (ICD-10 - F13.20) See assessment and plan for anxiety 07/02/2024 Benzodiazepine dependence (ICD-10 - F13.20) See assessment and plan for anxiety 07/30/2024 Benzodiazepine dependence (ICD-10 - F13.20) See assessment and plan for anxiety 08/13/2024 Benzodiazepine dependence (ICD-10 - F13.20) See assessment and plan for anxiety 08/20/2024 Benzodiazepine dependence (ICD-10 - F13.20) clonazepam use per PDMP PCP 01/01 prescribing 2 mg TID Rx reduced to 2 mg BID by Tess Olmos. 09/08/2024 Alcohol use disorder in remission (ICD-10 - F10.91) 11/04/2024 Benzodiazepine dependence (ICD-10 - F13.20) PCP 01/01 prescribing 2 mg TID Rx reduced to 2 mg BID by Tess Olmos. Now using 2-3 mg total QD 05/19/2024 Alcohol use disorder in remission (ICD-10 - F10.91) Duration (acute/chronic), stability (controlled/uncon trolled): Denies current use - sober for 17 years now, used to drink heavier in the past, I had been an alcoholic for a long time and didn't know it until I started AA, drank heavily for about 10 years then stopped going out when she started nodding in the clubs, then I joined mormonism. - Patient continues going to [employer] and mormonism. Current medications/effic acy: N/A Previous medication trials: N/A Current/previous therapies: Not discussed during appointment due to time constraints - will discuss at future visit Examination as documented - see pertinent aspects of office visit documentation. Pertinent diagnostics: LABS MONITORED BY PCP Differential diagnoses: RECOMMENDATIONS: Consider/Continue therapy. Consider/Continue substance cessation therapy as needed - contact office if desiring medication assisted therapy. Manage co-morbid conditions. Continue monitoring symptoms - report persistent or worsening/concern ing symptoms to the office or go to the ER. For mental health CRISIS, please reach out to [phone] ([facility] Suicide [facility] Crisis [facility]), 911, go to the emergency department, or contact the [facility] Crisis Unit/Team. Follow up as scheduled or sooner if necessary. Follow up with PCP and/or other specialists as advised. NEXT STEP: Consider MAT as needed. 04/21/2024 Alcohol use disorder in remission (ICD-10 - F10.91) Duration (acute/chronic), stability (controlled/uncon trolled): Denies current use - sober for 17 years now, used to drink heavier in the past, I had been an alcoholic for a long time and didn't know it until I started AA, drank heavily for about 10 years then stopped going out when she started nodding in the clubs, then I joined mormonism. - Patient continues going to [employer]. Current medications/effic acy: N/A Previous medication trials: N/A Current/previous therapies: Not discussed during appointment due to time constraints - will discuss at future visit Examination as documented - see pertinent aspects of office visit documentation. Pertinent diagnostics: LABS MONITORED BY PCP Differential diagnoses: RECOMMENDATIONS: Consider/Continue therapy. Consider/Continue substance cessation therapy as needed - contact office if desiring medication assisted therapy. Manage co-morbid conditions. Continue monitoring symptoms - report persistent or worsening/concern ing symptoms to the office or go to the ER. For mental health CRISIS, please reach out to [phone] ([facility]), 911, go to the emergency department, or contact the [facility] Crisis Unit/Team. Follow up as scheduled or sooner if necessary. Follow up with PCP and/or other specialists as advised. NEXT STEP: Consider MAT as needed. 02/04/2024 Alcohol use disorder in remission (ICD-10 - F10.91) Duration (acute/chronic), stability (controlled/uncon trolled): Denies current use - sober for 17 years now, used to drink heavier in the past, I had been an alcoholic for a long time and didn't know it until I started AA, drank heavily for about 10 years then stopped going out when she started nodding in the clubs, then I joined mormonism. - Patient continues going to [employer]. Current medications/effic acy: N/A Previous medication trials: N/A Current/previous therapies: Not discussed during appointment due to time constraints - will discuss at future visit Examination as documented - see pertinent aspects of office visit documentation. Pertinent diagnostics: LABS MONITORED BY PCP Differential diagnoses: RECOMMENDATIONS: Consider/Continue therapy. Consider/Continue substance cessation therapy as needed - contact office if desiring medication assisted therapy. Manage co-morbid conditions. Continue monitoring symptoms - report persistent or worsening/concern ing symptoms to the office or go to the ER. For mental health CRISIS, please reach out to [phone] ([facility]icide [facility]), 911, go to the emergency department, or contact the [facility] Crisis Unit/Team. Follow up as scheduled or sooner if necessary. Follow up with PCP and/or other specialists as advised. NEXT STEP: Consider MAT as needed. 07/15/2024 Benzodiazepine dependence (ICD-10 - F13.20) See assessment and plan for anxiety 06/24/2024 Benzodiazepine dependence (ICD-10 - F13.20) See assessment and plan for anxiety 12/28/2024 Benzodiazepine dependence (ICD-10 - F13.20) PCP 01/01 prescribing clonazepam 2 mg TID= 6 mg total daily Reduced to 2 mg BID by Tess Olmos. = 4 mg total 08/20/24 Using 2 mg BID, stopped Ambien 09/08/24 clonazepam 2-3 mg total QD. 12/28/2024 Alcohol use disorder in remission (ICD-10 - F10.91) 07/15/2024 Alcohol use disorder in remission (ICD-10 - F10.91) Duration (acute/chronic), stability (controlled/uncon trolled): Denies current use - sober for 17 years now, used to drink heavier in the past, I had been an alcoholic for a long time and didn't know it until I started AA, drank heavily for about 10 years then stopped going out when she started nodding in the clubs, then I joined mormonism. - Patient continues going to [employer] and mormonism. Current medications/effic acy: N/A Previous medication trials: N/A Current/previous therapies: Not discussed during appointment due to time constraints - will discuss at future visit Examination as documented - see pertinent aspects of office visit documentation. Pertinent diagnostics: LABS MONITORED BY PCP Differential diagnoses: RECOMMENDATIONS: Consider/Continue therapy. Consider/Continue substance cessation therapy as needed - contact office if desiring medication assisted therapy. Manage co-morbid conditions. Continue monitoring symptoms - report persistent or worsening/concern ing symptoms to the office or go to the ER. For mental health CRISIS, please reach out to [phone] ([facility] Suicide [facility] Crisis [facility]), 911, go to the emergency department, or contact the [facility] Crisis Unit/Team. Follow up as scheduled or sooner if necessary. Follow up with PCP and/or other specialists as advised. NEXT STEP: Consider MAT as needed. 06/24/2024 Alcohol use disorder in remission (ICD-10 - F10.91) Duration (acute/chronic), stability (controlled/uncon trolled): Denies current use - sober for 17 years now, used to drink heavier in the past, I had been an alcoholic for a long time and didn't know it until I started AA, drank heavily for about 10 years then stopped going out when she started nodding in the clubs, then I joined mormonism. - Patient continues going to [employer] and mormonism. Current medications/effic acy: N/A Previous medication trials: N/A Current/previous therapies: Not discussed during appointment due to time constraints - will discuss at future visit Examination as documented - see pertinent aspects of office visit documentation. Pertinent diagnostics: LABS MONITORED BY PCP Differential diagnoses: RECOMMENDATIONS: Consider/Continue therapy. Consider/Continue substance cessation therapy as needed - contact office if desiring medication assisted therapy. Manage co-morbid conditions. Continue monitoring symptoms - report persistent or worsening/concern ing symptoms to the office or go to the ER. For mental health CRISIS, please reach out to [phone] ([facility]), 911, go to the emergency department, or contact the [facility] Crisis Unit/Team. Follow up as scheduled or sooner if necessary. Follow up with PCP and/or other specialists as advised. NEXT STEP: Consider MAT as needed. 11/04/2024 Alcohol use disorder in remission (ICD-10 - F10.91) 02/04/2024 Nutritional counseling (ICD-10 - Z71.3) 05/19/2024 Nicotine dependence (ICD-10 - F17.200) Duration (acute/chronic), stability (controlled/uncon trolled): Chronic, Currently smoking 2 cigarettes daily, working on cutting back, planning on quitting in 06/2024 due to potential upcoming surgery Current medications/effic acy: N/A Previous medication trials: N/A RECOMMENDATIONS: Consider substance cessation therapy as needed - contact office if desiring medication assisted therapy. Manage co-morbid conditions. Continue monitoring symptoms - report persistent or worsening/concern ing symptoms to the office or go to the ER. For mental health CRISIS, please reach out to [phone] ([facility]), 911, go to the emergency department, or contact the [facility] Crisis Unit/Team. Follow up as scheduled or sooner if necessary. Follow up with PCP and/or other specialists as advised. NEXT STEP: Consider MAT as needed. 04/21/2024 Nicotine dependence (ICD-10 - F17.200) Duration (acute/chronic), stability (controlled/uncon trolled): Chronic, currently smoking 2 cigarettes daily, working on cutting back Current medications/effic acy: N/A Previous medication trials: N/A RECOMMENDATIONS: Consider substance cessation therapy as needed - contact office if desiring medication assisted therapy. Manage co-morbid conditions. Continue monitoring symptoms - report persistent or worsening/concern ing symptoms to the office or go to the ER. For mental health CRISIS, please reach out to [phone] ([facility]icide [facility]), 911, go to the emergency department, or contact the [facility] Crisis Unit/Team. Follow up as scheduled or sooner if necessary. Follow up with PCP and/or other specialists as advised. NEXT STEP: Consider MAT as needed. 08/20/2024 Alcohol use disorder in remission (ICD-10 - F10.91) 09/08/2024 Nicotine dependence (ICD-10 - F17.200) 06/09/2024 Alcohol use disorder in remission (ICD-10 - F10.91) Duration (acute/chronic), stability (controlled/uncon trolled): Denies current use - sober for 17 years now, used to drink heavier in the past, I had been an alcoholic for a long time and didn't know it until I started AA, drank heavily for about 10 years then stopped going out when she started nodding in the clubs, then I joined mormonism. - Patient continues going to [employer] and [employer]onism. Current medications/effic acy: N/A Previous medication trials: N/A Current/previous therapies: Not discussed during appointment due to time constraints - will discuss at future visit Examination as documented - see pertinent aspects of office visit documentation. Pertinent diagnostics: LABS MONITORED BY PCP Differential diagnoses: RECOMMENDATIONS: Consider/Continue therapy. Consider/Continue substance cessation therapy as needed - contact office if desiring medication assisted therapy. Manage co-morbid conditions. Continue monitoring symptoms - report persistent or worsening/concern ing symptoms to the office or go to the ER. For mental health CRISIS, please reach out to [phone] ([facility]), 911, go to the emergency department, or contact the [facility] Crisis Unit/Team. Follow up as scheduled or sooner if necessary. Follow up with PCP and/or other specialists as advised. NEXT STEP: Consider MAT as needed. 07/02/2024 Alcohol use disorder in remission (ICD-10 - F10.91) Duration (acute/chronic), stability (controlled/uncon trolled): Denies current use - sober for 17 years now, used to drink heavier in the past, I had been an alcoholic for a long time and didn't know it until I started AA, drank heavily for about 10 years then stopped going out when she started nodding in the clubs, then I joined mormonism. - Patient continues going to [employer] and [employer]onism. Current medications/effic acy: N/A Previous medication trials: N/A Current/previous therapies: Not discussed during appointment due to time constraints - will discuss at future visit Examination as documented - see pertinent aspects of office visit documentation. Pertinent diagnostics: LABS MONITORED BY PCP Differential diagnoses: RECOMMENDATIONS: Consider/Continue therapy. Consider/Continue substance cessation therapy as needed - contact office if desiring medication assisted therapy. Manage co-morbid conditions. Continue monitoring symptoms - report persistent or worsening/concern ing symptoms to the office or go to the ER. For mental health CRISIS, please reach out to [phone] ([facility]), 911, go to the emergency department, or contact the [facility] Crisis Unit/Team. Follow up as scheduled or sooner if necessary. Follow up with PCP and/or other specialists as advised. NEXT STEP: Consider MAT as needed. 07/30/2024 Alcohol use disorder in remission (ICD-10 - F10.91) Duration (acute/chronic), stability (controlled/uncon trolled): Denies current use - sober for 17 years now, used to drink heavier in the past, I had been an alcoholic for a long time and didn't know it until I started AA, drank heavily for about 10 years then stopped going out when she started nodding in the clubs, then I joined mormonism. - Patient continues going to [employer] and [employer]ism. Current medications/effic acy: N/A Previous medication trials: N/A Current/previous therapies: Not discussed during appointment due to time constraints - will discuss at future visit Examination as documented - see pertinent aspects of office visit documentation. Pertinent diagnostics: LABS MONITORED BY PCP Differential diagnoses: RECOMMENDATIONS: Consider/Continue therapy. Consider/Continue substance cessation therapy as needed - contact office if desiring medication assisted therapy. Manage co-morbid conditions. Continue monitoring symptoms - report persistent or worsening/concern ing symptoms to the office or go to the ER. For mental health CRISIS, please reach out to [phone] ([facility]), 911, go to the emergency department, or contact the [facility] Crisis Unit/Team. Follow up as scheduled or sooner if necessary. Follow up with PCP and/or other specialists as advised. NEXT STEP: Consider MAT as needed. 08/13/2024 Alcohol use disorder in remission (ICD-10 - F10.91) Duration (acute/chronic), stability (controlled/uncon trolled): Denies current use - sober for 17 years now, used to drink heavier in the past, I had been an alcoholic for a long time and didn't know it until I started AA, drank heavily for about 10 years then stopped going out when she started nodding in the clubs, then I joined mormonism. - Patient continues going to [employer] and [employer]onism. Current medications/effic acy: N/A Previous medication trials: N/A Current/previous therapies: Not discussed during appointment due to time constraints - will discuss at future visit Examination as documented - see pertinent aspects of office visit documentation. Pertinent diagnostics: LABS MONITORED BY PCP Differential diagnoses: RECOMMENDATIONS: Consider/Continue therapy. Consider/Continue substance cessation therapy as needed - contact office if desiring medication assisted therapy. Manage co-morbid conditions. Continue monitoring symptoms - report persistent or worsening/concern ing symptoms to the office or go to the ER. For mental health CRISIS, please reach out to [phone] ([facility]), 911, go to the emergency department, or contact the [facility] Crisis Unit/Team. Follow up as scheduled or sooner if necessary. Follow up with PCP and/or other specialists as advised. NEXT STEP: Consider MAT as needed. 04/07/2024 Nicotine dependence (ICD-10 - F17.200) Duration (acute/chronic), stability (controlled/uncon trolled): Chronic, currently smoking 2 cigarettes daily, working on cutting back Current medications/effic acy: N/A Previous medication trials: N/A RECOMMENDATIONS: Consider substance cessation therapy as needed - contact office if desiring medication assisted therapy. Manage co-morbid conditions. Continue monitoring symptoms - report persistent or worsening/concern ing symptoms to the office or go to the ER. For mental health CRISIS, please reach out to [phone] ([facility]), 911, go to the emergency department, or contact the [facility] Crisis Unit/Team. Follow up as scheduled or sooner if necessary. Follow up with PCP and/or other specialists as advised. NEXT STEP: Consider MAT as needed. 05/05/2024 Nicotine dependence (ICD-10 - F17.200) Duration (acute/chronic), stability (controlled/uncon trolled): Chronic, currently smoking 2 cigarettes daily, working on cutting back Current medications/effic acy: N/A Previous medication trials: N/A RECOMMENDATIONS: Consider substance cessation therapy as needed - contact office if desiring medication assisted therapy. Manage co-morbid conditions. Continue monitoring symptoms - report persistent or worsening/concern ing symptoms to the office or go to the ER. For mental health CRISIS, please reach out to [phone] ([place] [facility]), 911, go to the emergency department, or contact the [facility] Crisis Unit/Team. Follow up as scheduled or sooner if necessary. Follow up with PCP and/or other specialists as advised. NEXT STEP: Consider MAT as needed. 03/03/2024 Nutritional counseling (ICD-10 - Z71.3) 03/25/2024 Nicotine dependence (ICD-10 - F17.200) Duration (acute/chronic), stability (controlled/uncon trolled): Chronic, currently smoking 2 cigarettes daily, working on cutting back Current medications/effic acy: N/A Previous medication trials: N/A RECOMMENDATIONS: Consider substance cessation therapy as needed - contact office if desiring medication assisted therapy. Manage co-morbid conditions. Continue monitoring symptoms - report persistent or worsening/concern ing symptoms to the office or go to the ER. For mental health CRISIS, please reach out to [phone] ([place] [facility]), 911, go to the emergency department, or contact the [facility] Crisis Unit/Team. Follow up as scheduled or sooner if necessary. Follow up with PCP and/or other specialists as advised. NEXT STEP: Consider MAT as needed. 02/19/2024 Nutritional counseling (ICD-10 - Z71.3) 01/22/2024 Nutritional counseling (ICD-10 - Z71.3) 03/25/2024 Nutritional counseling (ICD-10 - Z71.3) 05/05/2024 Nutritional counseling (ICD-10 - Z71.3) 04/07/2024 Nutritional counseling (ICD-10 - Z71.3) 06/09/2024 Nicotine dependence (ICD-10 - F17.200) Duration (acute/chronic), stability (controlled/uncon trolled): Chronic, Currently smoking 2 cigarettes daily, working on cutting back, planning on quitting in 06/2024 due to potential upcoming surgery Current medications/effic acy: N/A Previous medication trials: N/A RECOMMENDATIONS: Consider substance cessation therapy as needed - contact office if desiring medication assisted therapy. Manage co-morbid conditions. Continue monitoring symptoms - report persistent or worsening/concern ing symptoms to the office or go to the ER. For mental health CRISIS, please reach out to [phone] ([facility]), 911, go to the emergency department, or contact the [facility] Crisis Unit/Team. Follow up as scheduled or sooner if necessary. Follow up with PCP and/or other specialists as advised. NEXT STEP: Consider MAT as needed. 08/13/2024 Nicotine dependence (ICD-10 - F17.200) Duration (acute/chronic), stability (controlled/uncon trolled): Chronic, Currently smoking 2 cigarettes daily, working on cutting back, see HPI Current medications/effic acy: N/A Previous medication trials: N/A RECOMMENDATIONS: Consider substance cessation therapy as needed - contact office if desiring medication assisted therapy. Manage co-morbid conditions. Continue monitoring symptoms - report persistent or worsening/concern ing symptoms to the office or go to the ER. For mental health CRISIS, please reach out to [phone] ([facility]), 911, go to the emergency department, or contact the [facility] Crisis Unit/Team. Follow up as scheduled or sooner if necessary. Follow up with PCP and/or other specialists as advised. NEXT STEP: Consider MAT as needed. 07/30/2024 Nicotine dependence (ICD-10 - F17.200) Duration (acute/chronic), stability (controlled/uncon trolled): Chronic, Currently smoking 2 cigarettes daily, working on cutting back, see HPI Current medications/effic acy: N/A Previous medication trials: N/A RECOMMENDATIONS: Consider substance cessation therapy as needed - contact office if desiring medication assisted therapy. Manage co-morbid conditions. Continue monitoring symptoms - report persistent or worsening/concern ing symptoms to the office or go to the ER. For mental health CRISIS, please reach out to [phone] ([facility]), 911, go to the emergency department, or contact the [facility] Crisis Unit/Team. Follow up as scheduled or sooner if necessary. Follow up with PCP and/or other specialists as advised. NEXT STEP: Consider MAT as needed. 07/02/2024 Nicotine dependence (ICD-10 - F17.200) Duration (acute/chronic), stability (controlled/uncon trolled): Chronic, Currently smoking 2 cigarettes daily, working on cutting back, see HPI Current medications/effic acy: N/A Previous medication trials: N/A RECOMMENDATIONS: Consider substance cessation therapy as needed - contact office if desiring medication assisted therapy. Manage co-morbid conditions. Continue monitoring symptoms - report persistent or worsening/concern ing symptoms to the office or go to the ER. For mental health CRISIS, please reach out to [phone] ([facility]), 911, go to the emergency department, or contact the [facility] Crisis Unit/Team. Follow up as scheduled or sooner if necessary. Follow up with PCP and/or other specialists as advised. NEXT STEP: Consider MAT as needed. 09/08/2024 Nutritional counseling (ICD-10 - Z71.3) 08/20/2024 Nicotine dependence (ICD-10 - F17.200) 11/04/2024 Nicotine dependence (ICD-10 - F17.200) 04/21/2024 Nutritional counseling (ICD-10 - Z71.3) 05/19/2024 Nutritional counseling (ICD-10 - Z71.3) 07/15/2024 Nicotine dependence (ICD-10 - F17.200) Duration (acute/chronic), stability (controlled/uncon trolled): Chronic, Currently smoking 2 cigarettes daily, working on cutting back, see HPI Current medications/effic acy: N/A Previous medication trials: N/A RECOMMENDATIONS: Consider substance cessation therapy as needed - contact office if desiring medication assisted therapy. Manage co-morbid conditions. Continue monitoring symptoms - report persistent or worsening/concern ing symptoms to the office or go to the ER. For mental health CRISIS, please reach out to [phone] ([facility]), 911, go to the emergency department, or contact the [facility] Crisis Unit/Team. Follow up as scheduled or sooner if necessary. Follow up with PCP and/or other specialists as advised. NEXT STEP: Consider MAT as needed. 12/28/2024 Nicotine dependence (ICD-10 - F17.200) 06/24/2024 Nicotine dependence (ICD-10 - F17.200) Duration (acute/chronic), stability (controlled/uncon trolled): Chronic, Currently smoking 2 cigarettes daily, working on cutting back, see HPI Current medications/effic acy: N/A Previous medication trials: N/A RECOMMENDATIONS: Consider substance cessation therapy as needed - contact office if desiring medication assisted therapy. Manage co-morbid conditions. Continue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
--- OUTSIDE RECORDS SUMMARY | 2025-01-08 11:45 | XMS_ITS | Clinical Summary ---
Author Organization [facility] Address [address] [place] [address] Care Team Providers Care Sales And Marketing Professional Name Role Phone Charleen Diaz MD Primary Care Provider + Kushal Joshua MD Unavailable [phone] Allergies Active Allergy Reactions Criticality Noted Date Comments Morphine Itching High 02/26/2014 Medications amoxicillin-c lavulanate (AUGMENTIN) 875-125 mg per tablet Take 1 tablet by mouth every 12 (twelve) hours 02/09/20 21 Active guaiFENesin-c odeine (GUAITUSS AC) liquid 100-10 mg/5 mL TAKE 10 ML BY MOUTH EVERY 4 HOURS NEEDED 01/30/20 21 Active clonazePAM (KlonoPIN) 2 mg tablet Take 2 mg by mouth 3 (three) times a day as needed 01/17/20 21 Active zolpidem (AMBIEN) 10 mg tablet zolpidem 10 mg tablet Active montelukast (SINGULAIR) 10 mg tablet montelukast 10 mg tablet Active traMADoL (ULTRAM) 50 mg tablet Take 50 mg by mouth every 4 (four) hours as needed 02/04/20 21 Active hydroCHLOROth iazide (HYDRODIURIL) 25 mg tablet hydrochlorothiazide 25 mg tablet Active famotidine (PEPCID) 20 mg tablet famotidine 20 mg tablet TAKE 1 TABLET BY MOUTH TWICE DAILY NEEDED Ac tive ibuprofen (ADVIL,MOTRIN ) 800 mg tablet ibuprofen 800 mg tablet TAKE 1 TABLET BY MOUTH EVERY 8 HOURS NEEDED FOR PAIN Active lisinopriL (PRINIVIL,ZES TRIL) 10 mg tablet lisinopril 10 mg tablet Active aspirin 81 mg enteric coated tablet aspirin 81 mg tablet,delayed release Take 1 tablet every day by oral route. 01/02/20 16 Active fluticasone propionate (FLONASE) 50 mcg/actuation nasal spray fluticasone propionate 50 mcg/actuation nasal spray,suspension Active Cholestyramin e Light 4 gram powder USE 1 SCOOP IN LIQUID TWICE DAILY NEEDED FOR DIARRHEA 12/30/19 21 Active vitamin E (vitamin E) 100 unit capsule Take 100 Units by mouth daily Active potassium chloride ER (potassium chloride ER) 10 mEq CR tablet Take 10 mEq by mouth 2 (two) times a day Active cyanocobalami n (Vitamin B-12) 100 mcg tablet Take 50 mcg by mouth daily Active docosahexaeno ic acid-epa 120-180 mg capsule Take by mouth Active fexofenadine (IAN) 180 mg tablet Take 180 mg by mouth daily Active flunisolide (NASALIDE) 25 mcg (0.025 %) spray,non-aer osol flunisolide 25 mcg (0.025 %) nasal spray 2 sprays each nostril bid Active albuterol HFA (PROVENTIL HFA,VENTOLIN HFA,PROAIR HFA) 90 mcg/actuation inhaler Inhale 2 puffs every 6 (six) hours as needed for wheezing Active Active Problems Problem Noted Date Diagnosed Date Iron deficiency anemia 01/17/2021 Immunizations Immunization Administration Dates Next Due Influenza, Quadrivalent, Spl it, Preservative Free, Intramuscular 02/25/2018,04/02/2017 Influenza, Trivalent, Preservative Free, Intramu scular 02/28/2014 Pneumococcal Conjugate PCV 13 08/26/2017 Pneumococcal Polysaccharide PPV23 07/21/2015 Surgical History Surgery Date Site/Laterality Comments COLONOSCOPY REPLACEMENT TOTAL KNEE 12/09/2009 - 01/08/2010 Left GALLBLADDER SURGERY 12/09/2009 - 01/08/2010 Family History Medical History Relation Name Comments No Known Problems Sister Martina Relation Name Status Comments Father Mother Sister Nocatee Alive Social History Tobacco Use Types Packs/Day Years Used Date Smoking Tobacco: Every Day Cigarettes Smokeless Tobacco: Never Comments Unknown Sex and Gender Information Value Date Recorded Sex Assigned at Not on file Legal Sex Female 9:53 AM [employer] Gender Identity Not on file Sexual Orientation Not on file Obstetrics History Last Filed Vital Signs Vital Sign Reading Time Taken Comments Blood Pressure 96/58 02/13/2021 11:38 AM [employer] MANAGEMENT ENGINE[employer] Pulse 72 02/13/2021 11:38 AM [employer] MA[employer]GEMENT ENGINEER Temperature 37.1 C (98.7 F) 02/13/2021 11:38 AM [employer] MANAGEMENT ENGINEER Respiratory Rate 18 02/13/2021 11:3 8 AM [employer] MANAGEMENT ENGINEER Oxygen Saturation 98% 02/13/2021 11: 38 AM [employer]ASTE MANAGEMENT ENGINEER Inhaled Oxygen Concentration - - Weight 117.4 kg (258 lb 12.8 oz) 2020 11:38 AM [employer] MANAGEMENT ENGINEER Height 160 cm (5' 3) 02/13/2021 11:38 AM [employer] MA[employer] ENGINEER Body Mass Index 45.84 02/13/2021 11:38 AM [employer]AST[employer] MA[employer]GEMENT ENGINEER Plan of Treatment Not on file Insurance [facility] HMO REF Care Teams Sales And Marketing Professional Relationship Specialty Start Date End Date Charleen Diaz MD [address] [place] [address] PCP - General Family Medicine 08/30/20 Kushal Joshua MD [address] [place] [address] Consulting Physician Hematology and Oncology 02/13/21
--- OUTSIDE RECORDS SUMMARY | 2025-01-08 11:45 | XMS_ITS | Continuity of Care Document ---
Author Organization [place] [employer] Address [address] [place] [address] [place] [address] Assessment Encounter Date Assessment Date Assessment LastModified by Organization Details LastModified Time 01/07/2025 01/07/2025 -- Transfered from Dr Charleen Diaz (left practice); did not like new provider [employer] Sammi Chatman who took over Dr Diaz -- pt's Psychiatry [employer] Mikayla Hernandez at [place] [address] Not available 01/07/2025 16:47:36 Plan of Treatment Reminders Order Date Submit Date Provider Last Modified By Organization Details Last Modified Time Details Appointments ESTABLISH ED PATIENT 15 2024 02:45P M Aakash Cha MD Not available Not available Not available NEW PATIENT BARI 2025 01:00P Michael Cha MD Not available Not available Not available Lab HbA1c (hemoglob in A1c), blood 2024 [email or web address], [address], [place], [address], 01/07/2025 17:06:49 CMP, serum or plasma 2024 025 [email or web address], [address], [place], [address], 01/07/2025 17:06:49 TSH + free T4, serum 2024 025 [email or web address], [address], [place], [address], 01/07/2025 17:06:48 T3, free, serum or plasma 2024 [email or web address], [address], [place], [address], 01/07/2025 17:06:49 vitamin B12 + folate, serum or blood 2024 [email or web address], [address], [place], [address], 01/07/2025 17:06:48 HIV 1 + 2, meaningfu l use set 2024 [email or web address], [address], [place], [address], 01/07/2025 17:06:47 CBC w/ auto diff 2024 [email or web address], [address], [place], [address], 01/07/2025 17:06:50 vitamin B1 (thiamine ), blood 2024 [email or web address], [address], [place], [address], 01/07/2025 17:06:50 vitamin B6 (pyridoxi ne), plasma 2024 [email or web address], [address] [place], [address], 01/07/2025 17:06:47 lipid panel, serum 2024 [email or web address], [address] [place], [address], 01/07/2025 17:06:49 urinalysi s complete, reflex culture 2024 [email or web address], [address], [place], [address], 01/07/2025 17:06:48 hepatitis C Ab, quantitat nikos, serum 2024 [facility], [address], [place], [address], 01/07/2025 17:06:49 Referral gynecolog ist referral - -- for routine Transmission And Protection Engineer exam 2024 [facility], [address], [place], [address], 01/07/2025 17:16:54 ophthalmo logist referral 2024 [facility], [address], [address], [place], [address], 01/07/2025 17:30:41 gastroent erologist referral 2024 [facility] Stephan Mccann MD, [address], [address], [place], [address], 01/07/2025 17:30:42 Procedures None recorded. Surgeries None recorded. Imaging US, duplex, venous, lower extremity , unilatera l [email or web address], [address], [address], [place], [address], 01/07/2025 17:11:31 electroca rdiogram 2024 [facility], [address] , [address], [place], [address], 01/08/2025 08:57:18 XR, knee, 3 view 2024 [facility], [address], [address], [place], [address], 01/07/2025 17:20:42 US, screening for abdominal aortic aneurysm 2024 [email or web address], [address], [address], [place], [address], 01/07/2025 17:11:31 Medication Orders None recorded. Patient TargetsNo targets recorded. 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 Referral for Eye / vision finding Referring Physician: Aakash Cha, Internal Medicine, Encounter Date: 01/07/2025 Therapist Phys Referral for Gy necologic examination -- for routine Transmission And Protection Engineer exam Referring Physician: Aakash Cha Internal Medicine, Encounter Date: 01/07/2025 Manager Plan Referral for Screening for malignant neoplasm of colon Referring Physician: Aakash Cha Internal Medicine, Encounter Date: 01/07/2025 Results Created Date Observation Date Name Description Value Unit Range Abnormal Flag Note LastModifiedBy Organization Detail LastModifiedTime 01/09/2001/08/2025 bruce metry testi ng* Spirometry Not Available [facility], [address], [place], [address], 01/07/2025 15:33:05 01/08/2001/08/2025 elect rocar diogr am No observ ation record ed. [facility], [address], [place], [address], 01/08/2025 08:57:18 01/08/20 25 01/07/2025 elect rocar diogr am No observ ation record ed. anna Not Available 2024 08:57:23 01/08/20 25 01/07/2025 bruce metry testi ng* No observ ation record ed. an[facility], [address], [place], [address], 01/08/2025 08:57:29 01/09/2001/23/2024 imagi ng/di agnos tic resul t No observ ation record ed. [facility] [address], [place], [address], 01/08/2025 11:00:08 Result Notes None recorded. Problems Name Problem SNOMED Code Status Onset Date Resolution Date Notes Provider Name and Address Organization Details Recorded Time History of asthma 632883840 Active [address] 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 Procedures Surgical History Date Name Laterality Status Provider Name and Address Organization Details Recorded Time Date of Last Mammogram completed [facility] 01/07/2025 15:13:53 5 Date of Last Pap Smear completed [facility] 01/07/2025 15:44:16 5 operative procedure on femur completed [facility] 01/07/2025 15:43:08 2 operation on gallbladder completed [facility] 01/07/2025 15:40:31 0 total knee replacement completed [facility] 01/07/2025 15:40:48 7 operative procedure on hand completed [facility] 01/07/2025 15:41:21 7 operative procedure on femur completed [facility] 01/07/2025 15:43:46 Imaging Results None recorded. Procedure Notes None recorded. Medical Equipment None Reported. Allergies Allergen ID Allergen Name Allergen Category Reaction Reaction Severity Criticality Documentation Date Start Date Code Code System Note Provider Name and Address Organization Details Recorded Time 80275 morphine medicatio n itching Not available high 11/25/20242013 7052 RxNorm Not Available [facility] - External Data Service - prod 5 03:16:38 Medications Name Sig Start Date Stop Date Status Note LastModified by Organization Details LastModified Time fluoxetin e 40 mg capsule TAKE 1 CAPSULE BY MOUTH EVERY NIGHT AT BEDTIME 2024 active -- on 50 mg a day from Psychiat ry [employer] Mikayla [place] [facility] [place] Not Available Not Available Not Available buspirone 5 mg tablet TAKE 1 TABLET BY MOUTH TWICE DAILY 01/07 completed pt is not taking. js-- pt is now on 45 mg Not Available Not Available Not Available trazodone 50 mg tablet TAKE 1 TO 2 TABLETS BY MOUTH DAILY AT BEDTIME NEEDED FOR SLEEP active Psychiat ry [employer] Mikayla [place] [facility] [place] Not Available Not Available Not Available ibuprofen 800 mg tablet Take 1 tablet every 8 hours by oral route as needed. active Not Available Not Available No t Available hydrocodo ne 5 mg-acetam inophen 325 mg tablet TAKE 1 TABLET BY MOUTH EVERY 4 TO 6 HOURS NEEDED 12/31 completed Not Available Not Available Not Available lisinopri l 20 mg tablet TAKE 1 TABLET BY MOUTH EVERY DAY active Not Available Not Available No t Available famotidin e 40 mg tablet TAKE 1 TABLET BY MOUTH EVERY DAY NEEDED 12/31 completed Not Available Not Available Not Available clonazepa m 1 mg tablet TAKE 1 TABLET BY MOUTH THREE TIMES DAILY NEEDED FOR ANXIETY active Psychiat ry [employer] Mikayla [place] [facility] [place] Not Available Not Available Not Available Archana Low Dose Aspirin 81 mg tablet,de layed release Take 1 tablet every day by oral route. active Not Available Not Available No t Available meclizine 12.5 mg tablet Take 1 tablet 3 times a day by oral route as needed. active Not Available Not Available No t Available tramadol 50 mg tablet TAKE 1 TABLET BY MOUTH EVERY 6 TO 8 HOURS NEEDED FOR SEVERE PAIN. MUST LAST 30 DAYS. active Not Available Not Available No t Available buspirone 30 mg tablet TAKE 1 TABLET BY MOUTH TWICE DAILY IN THE MORNING AND IN THE EVENING active Psychiat ry [employer] Mikayla [facility] [place] (total of 45 mg TID) Not Available Not Available Not Available lisinopri l 10 mg tablet TAKE 1 TABLET BY MOUTH EVERY DAY 01/07 completed -- on 20 mg now Not Available Not Available Not Available clonazepa m 2 mg tablet TAKE 1 TABLET BY MOUTH TWICE DAILY FOR 14 DAYS NEEDED FOR ANXIETY 01/07 completed -- on 1 mg now by Psychiat ry [employer] Mikayla [facility] [place] Not Available Not Available Not Available fluoxetin e 10 mg capsule TAKE 1 CAPSULE BY MOUTH DAILY in AM active -- on 50 mg a day from Psychiat ry [employer] Mikayla Hernandez [facility] [place] Not Available Not Available Not Available gabapenti n 300 mg capsule TAKE 1 CAPSULE BY MOUTH TWICE DAILY NEEDED FOR PAIN OR SLEEP active -- issued by Psychiat ry [employer] Mikayla Hernandez [facility] [place] Not Available Not Available Not Available sertralin e 25 mg tablet TAKE 1 TABLET BY MOUTH DAILY FOR 2 WEEKS. INCREASE TO 2 TABLETS 30 DAYS 01/07 completed -- no longer on it (was from Psychiat ry [employer] Mikayla Hernandez [facility] [place] ) Not Available Not Available Not Available buspirone 7.5 mg tablet TAKE 1 TABLET BY MOUTH THREE TIMES DAILY FOR 5 DAYS 01/07 completed pt is not taking. js Not Available Not Available Not Available monteluka st 10 mg tablet TAKE 1 TABLET BY MOUTH DAILY 01/07 completed Not Available Not Available Not Available hydrochlo rothiazid e 25 mg tablet TAKE 1 TABLET BY MOUTH DAILY 01/07 completed Not Available Not Available Not Available gabapenti n 100 mg capsule TAKE 1 CAPSULE BY MOUTH TWICE DAILY NEEDED FOR PAIN OR SLEEP 01/07 completed -- on 300 mg now Not Available Not Available Not Available zolpidem 10 mg tablet TAKE 1 TABLET BY MOUTH DAILY AT BEDTIME NEEDED 12/31 completed Not Available Not Available Not Available albuterol sulfate HFA 90 mcg/actua tion aerosol inhaler INHALE 2 PUFFS BY MOUTH EVERY 4 HOURS 12/31 completed Not Available Not Available Not Available fluoxetin e 20 mg capsule TAKE 1 CAPSULE BY MOUTH EVERY NIGHT AT BEDTIME 01/07 completed -- on 10 mg now Not Available Not Available Not Available sertralin e 50 mg tablet TAKE 1 TABLET BY MOUTH DAILY 01/07 completed -- pt is now on Fluoxeti ne 50 mg from Psychiat ry [employer] Mikayla [facility] [place] Not Available Not Available Not Available acetamino phen 500 mg capsule Take 2 capsules every 6-8 hours by oral route as needed. active Not Available Not Available No t Available doxycycli ne hyclate 100 mg tablet TAKE 1 TABLET BY MOUTH TWICE DAILY FOR 7 DAYS 12/31 completed Not Available Not Available Not Available nicotine 7 mg/24 hr daily transderm al patch APPLY 1 PATCH TOPICALL Y TO THE SKIN EVERY DAY 12/31 completed Not Available Not Available Not Available buspirone 15 mg tablet TAKE 1 TABLET BY MOUTH DAILY IN THE AFTERNOO N active Psychiat ry [employer] Mikayla [place] [facility] [place] -- total 45 mg a day) Not Available Not Available Not Available melatonin 10 mg capsule Take 1 capsule every day by oral route at bedtime. active Not Available Not Available No t Available Vitals Date Recorded Body height Respiratory rate Body mass index (BMI) Body weight Body temperature Heart rate Systolic And Diastolic Provider Name and Address Organization Details Last Updated DateTime 166.37 cm 16 /min 32.3 kg/m2 62656.7 g 98.4 [degF] 73 /min 135/81 mm[Hg] Kaleigh Danielson [facility] 15:20:08 Social History Question Answer Notes LastModified by Organizat ion Details LastModified Time Tobacco Smoking Status Current Some Day Smoker David manley, [facility] 01/07/2025 15:12:17 Do You Have An Advance Directive? Yes Information not available 01/07/2025 Are You Blind Or Do You Have Difficulty Seeing? Yes [email or web address] Information not available 01/07/2025 Is Blood Transfusion Acceptable In An Emergency? Yes Information not available 01/07/2025 What Is Your Level Of Caffeine Consumption? Moderate [email or web address] Information not available 01/07/2025 What Is Your Code Status? DNR Daughter Has Paperwork Information not available 01/07/2025 In The 14 Days Before Symptom Onset, Have You Had Close Contact With A Laboratory-confir [facility] COVID-19 While That Case Was Ill? No Information not available 01/07/2025 In The 14 Days Before Symptom Onset, Have You Had Close Contact With A Person Who Is Under Investigation For COVID-19 While That Person Was Ill? No Information not available 01/07/2025 Have You Been To An Area Known To Be High Risk For COVID-19? No Information not available 01/07/2025 Are You Deaf Or Do You Have Serious Difficulty Hearing? No Information not available 01/07/2025 What Type Of Diet Are You Following? REGULAR Information not available 01/07/2025 Have You Processed Blood Or Body Fluids From An Ebola Virus Disease Patient Without Appropriate PPE? No Information not available 01/07/2025 Do You Reside In Or Have You Traveled To An Area Where Ebola Virus Transmission Is Active? No Information not available 01/07/2025 What Is The Highest Grade Or Level Of School You Have Completed Or The Highest Degree You Have Received? [id number] Information not available 01/07/2025 Have There Been Any Changes To Your Family Or Social Situation? No Information no t available 01/07/2025 Are There Any Guns Present In Your Home? No [email or web address] Information not available 01/07/2025 How Many Children Do You Have? 1 Information not available 01/07/2025 Do You Have Any Pets? No [email or web address] Information not available 01/07/2025 What Is Your Relationship Status? Information not available 01/07/2025 Are You Sexually Active? No Information not available 01/07/2025 Do You Have Smoke And Carbon Monoxide Detectors In Your Home? Yes [email or web address] Information not available 01/07/2025 Are You Passively Exposed To Smoke? Yes [email or web address] Information no t available 01/07/2025 How Much Tobacco Do You Smoke? 0.5 PPD [email or web address] Information not available 01/07/2025 How Many Years Have You Smoked Tobacco? 2 On And Off [email or web address] Information not available 01/07/2025 Do You Have Difficulty Walking Or Climbing Stairs? Yes [email or web address] Information not available 01/07/2025 Sex: Unknown Functional Status Question Answer Note LastModified by Organizat ion Details LastModified Time Do you use any illicit or recreational drugs? No Information not available 01/07/2025 Do you or have you ever used any other forms of tobacco or nicotine? No [email or web address] Information not available 01/07/2025 What is your level of alcohol consumption? None [email or web address] Information not available 01/07/2025 Are you currently employed? No retired Information not available 01/07/2025 Do you have transportation difficulties? No [email or web address] Information not available 01/07/2025 Do you have difficulty doing errands alone? No [email or web address] Information not available 01/07/2025 Are you able to care for yourself independently? Yes [email or web address] Information not available 01/07/2025 Mental Status Question Answer Note LastModified by Organization D etails LastModified Time Do you feel stressed (tense, restless, nervous, or anxious, or unable to sleep at night)? [id number] [email or web address] Information not available 01/07/2025 Family History Relationship Description Onset Age of this Age Resolved Age Notes LastModified by Organization Details LastModified Time Mother Arthritis [email or web address] Not available 01/07/2025 15:29:16 Sister Hypertensive disorder [email or web address] Not available 2024 15:29:39 Sister Anemia [email or web address] Not available 15:29:54 Maternal Aunt Carcinoma of colon [email or web address] Not available 2024 15:31:31 Maternal Uncle Carcinoma of colon [email or web address] Not available 2024 15:31:31 Unspecified Relation Carcinoma of colon 5 cousin s [email or web address] Not available 01/07/2025 15:31:31 Medical History Condition Response Coronary Artery Disease Y Other N Gout N Kidney Stones N Blood Diseases N Hyperthyroidism N Breast Cancer N Blood Transfusion Y COPD N Depression Y Lung Disease N Hypothyroidism N Defects or Inherited Disease N Developmental or Behavioral Disorders N Breast Problem N Difficulty Swallowing N Anesthesia Complications N Meniere's disease N Anxiety Disorder Y Muscle, Joint, or Bone Problems Y Obesity N Vision or Eye Problems N Arthritis Y Polyps N Infertility N Mental Disorder N Cancer N Varicosities Y Stroke N Endometriosis N Bladder or Kidney Problems N High Cholesterol N Liver Disease N Fibromyalgia N Headaches N Kidney Disease N Allergies/Hayfever Y Heart Problems N Ear or Hearing Problems N Hospitalizations N Thyroid Problems N GI Problems Y ADD/ADHD N Skin Problems N Eating Disorder N Anemia N MRSA exposure N Constipation N Mental Illness N Ovarian Cancer N Diabetes N Bedwetting N Seizures/Epilepsy N Tuberculosis N AIDS/HIV N Congestive Heart Failure (CHF) N Eczema N Diverticulitis N Abuse/Domestic Violence N Asthma Y Reflux/GERD Y Hepatitis N Heart Disease N Pulmonary Embolism N Pre-Eclampsia N Hypertension Y Chronic Ear Infections N Osteoporosis Y Chicken Pox Y Autism Spectrum Disorder (ASD) N Thrombophilias N Gynecological History Statement/Question Response Date of Last Pap Smear 03/11/2014 Date of Last Mammogram 04/11/2024 Obstetrics History GPAL:G 1 P 1 0 0 0 Type Value Full Term 1 Total 1 Immunizations Vaccine Type Date Status Note Provider Nam e and Address Organization Details Recorded Time pneumococcal, unspecified formulation 08/09/2024 completed David Jones [facility] 01/07/2025 15:04:12 Past Encounters Encounter ID Performer Location Encounter Start Date Encounter Closed Date Diagnosis/Indication Diagnosis SNOMED-CT Code Diagnosis ICD10 Code Diagnosis IMO Codes Diagnosis Note [id number] Aakash Cha MD [facility], [facility] [address] [address] 01/07/2025 14:16:01 01/07/2025 17:11:30 Allergic rhinitis 50222507 J30.9 9253662203 Increased thirst 8650432 03 R63.1 777672 Increased frequency of urination 959865995 R35.0 538010 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 751743 -- has sleep disturbanc e Expiratory wheezing 9763 007 R06.2 07050731 -- just had chest CT done in September 2024 at [facility] History of gastroesophageal reflux disease 9102621241 9106 Z87.19 226756 History of clinical finding in subject 998894961 Z86.79 401149 Eye / vision finding 118 966896 H53.9 [id number] -- on 01/07/25 pt reported she is already seeing [facility] and is closely followed for catarct; pt said she will give me his name the next visit 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 670522948 E66.811 E66.09 Z68.32 27788960 Hepatitis C screening 41 3820025 Z11.59 94023930 HIV screening 968518734 Z11.4 032819 Active or passive immunization 059324341 Z23 -- pt does not want Flu shot Screening for malignant neoplasm of colon 324680149 Z12.11 -- pt reported on 01/07/25 that she is due for f/u Colonoscop y w/ Dr Stephan Mccann Screening for malignant neoplasm of breast 833662854 Z12.31 -- pt reported she had a normal mammogram done around September 2024 Gynecologi c examination 03190327 Z01.419 Fatigue 56394921 R53.83 Nicotine d ependence with current use 445707683 F17.210 -- started smoking at 20 y/o; started smoking regular 1 ppd x over 20 years -- advised to quit smoking because of increased risks for stroke, heart attacks, cancers, COPD (emphysema /chronic bronchitis ), aneurysm and premature . -- had chest CT done in [facility] in [place], [place] around September 2024 Localized swelling of right lower leg 1873785625 9836706 R22.41 2994640684 Joint stiffness 99088443 M25.621 91297765 (at right bicep area) -- when swinging or walking Pain of knee region 1003 165780 M25.561 M25.562 G89.29 23870627 (R>L) knees Health Concerns Section Related Observation LastModified by Organization Detai ls LastModified Time None Recorded Concern Status LastModified by Organization Details LastModified Time None Recorded Payers Encounter Date Sequence Insurance Name Policy Number Policy Nice Covered Member ID Nice Member ID Guarantor Name 01/07/2025 1 [facility] [employer] (MEDICARE REPLACEMENT/A DVANTAGE - PPO) [id number] Chelsy Tan [id number] Chelsy Tan Notes Date Note Type Note Provider Name and Address Organization Details Recorded Time 01/07/2025 text/html Pt comes in to get acquainted medically. Pt has many issues. She has increasing thirst, frequent urination, wheezing, GERD, Rt thigh pain and swelling, and is requesting Tramadol refill. Pt feels well and has no c/o. Pt has no new sx and no increasing sx. Patient denies any jaw or neck discomfort, left arm pain/left arm discomfort, chest discomfort/pain, diaphoresis, breathing symptoms/chest tightness, indigestion sx, n/v, any angina equivalent symptoms, etc. Aakash Cha MD [address], [place], [address], [facility] 01/07/2025 17:13:09 OBGyn Episode No OBEpisode recorded.
--- OUTSIDE RECORDS SUMMARY | 2025-01-08 11:45 | XMS_ITS | Data Portability ---
Author Organization [place] - [facility], [employer] Address [address] [place] [address] Assessment Encounter Date Assessment Date Assessment LastModified by Organization Details LastModified Time 01/07/2025 01/07/2025 -- Transfered from Dr Charleen Diaz (left practice); did not like new provider [employer] JUDGE Sammi Chatman who took over Dr Diaz -- pt's Psychiatry [employer] JUDGE Mikayla Hernandez at [place] [id number] Not available 01/07/2025 16:47:36 Plan of Treatment Reminders Order Date Submit Date Provider Last Modified By Organization Details Last Modified Time Details Appointments ESTABLISH ED PATIENT 15 2024 02:45P Michael Cha MD Not available Not available Not available NEW PATIENT BARI 2025 01:00P Michael Cha MD Not available Not available Not available Lab HbA1c (hemoglob in A1c), blood 2024 [facility], [address], [place], [address], 01/07/2025 17:06:49 CMP, serum or plasma 2024 025 [facility], [address], [place], [address], 01/07/2025 17:06:49 TSH + free T4, serum 2024 025 [facility], [address], [place], [address], 01/07/2025 17:06:48 T3, free, serum or plasma 2024 025 [facility], [address], [place], [address], 01/07/2025 17:06:49 vitamin B12 + folate, serum or blood 2024 [facility], [address], [place], [address], 01/07/2025 17:06:48 HIV 1 + 2, meaningfu l use set 2024 [facility], [address], [place], [address], 01/07/2025 17:06:47 CBC w/ auto diff 2024 [facility], [address], [place], [address], 01/07/2025 17:06:50 vitamin B1 (thiamine ), blood 2024 [facility], [address] [place], [address], 01/07/2025 17:06:50 vitamin B6 (pyridoxi ne), plasma 2024 [facility], [address] [place], [address], 01/07/2025 17:06:47 lipid panel, serum 2024 [facility], [address] [place], [address], 01/07/2025 17:06:49 urinalysi s complete, reflex culture 2024 [facility], [address] [place], [address], 01/07/2025 17:06:48 hepatitis C Ab, quantitat nikos, serum 2024 [facility], [address], [place], [address], 01/07/2025 17:06:49 Referral gynecolog ist referral - -- for routine Enterprise Application Architect exam 2024 [facility], [address], [place], [address], 01/07/2025 17:16:54 ophthalmo logist referral 2024 [facility], [address], [address], [place], [address], 01/07/2025 17:30:41 gastroent erologist referral 2024 [facility] Stephan Mccann MD, [address], [place], [address], 01/07/2025 17:30:42 Procedures None recorded. Surgeries None recorded. Imaging US, duplex, venous, lower extremity , [facility]atera l [facility], [address], [address], [place], [address], 01/07/2025 17:11:31 electroca rdiogram 2024 [facility], [facility], [address] , [address], [place], [address], 01/08/2025 08:57:18 XR, knee, 3 view 2024 [facility], [address], [address], [place], [address], 01/07/2025 17:20:42 US, screening for abdominal aortic aneurysm 2024 [facility], [address], [address], [place], [address], 01/07/2025 17:11:31 Medication Orders None recorded. Patient TargetsNo targets recorded. 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 Referral for Eye / vision finding Referring Physician: Aakash Cha, Internal Medicine, Encounter Date: 01/07/2025 Spa Concierge Referral for Gy necologic examination -- for routine Enterprise Application Architect exam Referring Physician: Aakash Cha Internal Medicine, Encounter Date: 01/07/2025 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 anna [place] [facility], [place] [address], [place], [address], 01/08/2025 08:57:18 01/08/2001/07/2025 elect rocar diogr am No observ ation record ed. anna Not Available 2024 08:57:23 01/08/2001/07/2025 bruce metry testi ng* No observ ation record ed. [facility], [place] [address], [place], [address], 01/08/2025 08:57:29 01/09/2001/23/2024 imagi ng/surekha nation tic resul t No observ ation record ed. [facility] [address], [place], [address], 01/08/2025 11:00:08 Result Notes None recorded. Problems Name Problem SNOMED Code Status Onset Date Resolution Date Notes Provider Name and Address Organization Details Recorded Time History of asthma 188321318 Active 2008 [facility] 15:06:14 Essential hypertensio n 32812053 Active 2024 [facility] 15:06:38 Disorder of skeletal muscle 99573770 Active 2024 [facility] 15:07:09 Functional disorder of gastrointes tinal tract 8508769360381 04 Active 2024 [facility] 15:07:34 Problem Notes None recorded. Procedures Surgical History Date Name Laterality Status Provider Name and Address Organization Details Recorded Time 5 Date of Last Mammogram completed [facility] 01/07/2025 15:13:53 5 Date of Last Pap Smear completed [facility] 01/07/2025 15:44:16 5 operative procedure on femur completed [facility] 01/07/2025 15:43:08 2 operation on gallbladder completed [facility] 01/07/2025 15:40:31 0 total knee replacement completed [facility] 01/07/2025 15:40:48 7 operative procedure on hand completed [facility] 01/07/2025 15:41:21 7 operative procedure on femur completed [facility] 01/07/2025 15:43:46 Imaging Results None recorded. Procedure Notes None recorded. Medical Equipment None Reported. Allergies Allergen ID Allergen Name Allergen Category Reaction Reaction Severity Criticality Documentation Date Start Date Code Code System Note Provider Name and Address Organization Details Recorded Time 30762 morphine medicatio n itching Not available high 11/25/20242013 7052 RxNorm Not Available chris - External Data Service - prod 5 03:16:38 Medications Name Sig Start Date Stop Date Status Note LastModified by Organization Details LastModified Time fluoxetin e 40 mg capsule TAKE 1 CAPSULE BY MOUTH EVERY NIGHT AT BEDTIME 2024 active -- on 50 mg a day from Psychiat ry [employer] JUDGE Mikayla David at [place] Not Available Not Available Not Available buspirone 5 mg tablet TAKE 1 TABLET BY MOUTH TWICE DAILY 01/07 completed pt is not taking. js-- pt is now on 45 mg Not Available Not Available Not Available trazodone 50 mg tablet TAKE 1 TO 2 TABLETS BY MOUTH DAILY AT BEDTIME NEEDED FOR SLEEP active Psychiat ry [employer] JUDGE Mikayla David at [place] Not Available Not Available Not Available ibuprofen [...] DAILY NEEDED FOR ANXIETY active Psychiat ry [facility] JUDGE Mikayla Belgium at [place] Not Available Not Available Not Available Archana [...] AND IN THE EVENING active Psychiat ry [facility] JUDGE Mikayla Belgium at [place] (total of 45 mg TID) Not Available [...] on 1 mg now by Psychiat ry [facility] JUDGE Mikayla Hernandez at [place] Not Available Not Available Not Available fluoxetin e 10 mg capsule TAKE 1 CAPSULE BY MOUTH DAILY in AM active -- on 50 mg a day from Psychiat ry [employer] JUDGE Mikayla Hernandez [facility] Not Available Not Available Not Available gabapenti n 300 mg capsule TAKE 1 CAPSULE BY MOUTH TWICE DAILY NEEDED FOR PAIN OR SLEEP active -- issued by Psychiat ry [employer] JUDGE Mikayla Hernandez [facility] Not Available Not Available Not Available sertralin e 25 mg tablet TAKE 1 TABLET BY MOUTH DAILY FOR 2 WEEKS. INCREASE TO 2 TABLETS 30 DAYS 01/07 completed -- no longer on it (was from Psychiat ry [facility] JUDGE Mikayla Hernandez at [place] ) Not Available Not Available Not Available [...] Fluoxeti ne 50 mg from Psychiat ry [facility] JUDGE Mikayla Hernandez at [place] Not Available Not Available Not Available acetamino [...] IN THE AFTERNOO N active Psychiat ry [facility] JUDGE Mikayla Gonsalezrus at [place] -- total 45 mg a day) Not [...] DateTime 166.37 cm 16 /min 32.3 kg/m2 72543.7 g 98.4 [degF] 73 /min 135/81 mm[Hg] Kaleigh Erum [facility] 15:20:08 Social History Question Answer Notes LastModified by Organizat ion Details LastModified Time Tobacco Smoking Status Current Some Day Smoker David manley [facility] 01/07/2025 15:12:17 Do You Have An Advance Directive? Yes Information not available 01/07/2025 Are You Blind Or Do You Have Difficulty Seeing? Yes [email or web address] Information not available 01/07/2025 Is Blood Transfusion Acceptable In An Emergency? Yes Information not available 01/07/2025 What Is Your Level Of Caffeine Consumption? Moderate [email or web address] Information not available 01/07/2025 What Is Your Code Status? DNR Daughter Has Paperwork Information not available 01/07/2025 In The 14 Days Before Symptom Onset, Have You Had Close Contact With A Laboratory-confir med COVID-19 While That Case Was Ill? No [...] Do You Have Serious Difficulty Hearing? No [email or web address] Information not available 01/07/2025 What Type Of [...] Or The Highest Degree You Have Received? [id number] Information not available 01/07/2025 Have There Been Any Changes To Your Family Or Social Situation? No Information no t available 01/07/2025 Are There Any Guns Present In Your Home? No [email or web address] Information not available 01/07/2025 How Many Children Do You Have? 1 Information not available 01/07/2025 Do You Have Any Pets? No [email or web address] Information not available 01/07/2025 What Is Your Relationship Status? Information not available 01/07/2025 Are You Sexually Active? No Information not available 01/07/2025 Do You Have Smoke And Carbon Monoxide Detectors In Your Home? Yes [email or web address] Information not available 01/07/2025 Are You Passively Exposed To Smoke? Yes Information no t available 01/07/2025 How Much Tobacco Do You Smoke? 0.5 PPD [email or web address] Information not available 01/07/2025 How Many Years Have You Smoked Tobacco? 2 On And Off [email or web address] Information not available 01/07/2025 Do You Have Difficulty Walking Or Climbing Stairs? Yes [email or web address] Information not available 01/07/2025 Sex: Unknown Functional Status Question Answer Note LastModified by Organizat ion Details LastModified Time Do you use any illicit or recreational drugs? No [email or web address] Information not available 01/07/2025 Do you or have you ever used any other forms of tobacco or nicotine? No [email or web address] Information not available 01/07/2025 What is your level of alcohol consumption? None [email or web address] Information not available 01/07/2025 Are you currently employed? No retired Information not available 01/07/2025 Do you have transportation difficulties? No Information not available 01/07/2025 Do you have difficulty doing errands alone? No Information not available 01/07/2025 Are you able to care for yourself independently? Yes [email or web address] Information not available 01/07/2025 Mental Status Question Answer Note LastModified by Organization D etails LastModified Time Do you feel stressed (tense, restless, nervous, or anxious, or unable to sleep at night)? [id number] [email or web address] Information not available 01/07/2025 Family History Relationship [...] N Breast Cancer N Blood Transfusion Y Hypothyroidism N Depression Y COPD N Lung Disease N Defects or Inherited Disease N Developmental [...] N High Cholesterol N Liver Disease N Headaches N Fibromyalgia N Kidney Disease N Allergies/Hayfever Y Heart [...] N Heart Disease N Pulmonary Embolism N Chronic Ear Infections N Pre-Eclampsia N Hypertension Y Chicken Pox Y Autism Spectrum Disorder (ASD) N Osteoporosis Y Thrombophilias N Gynecological History Statement/Question Response Date of Last Pap Smear 03/11/2014 Date of Last Mammogram 04/11/2024 Obstetrics History GPAL:G 1 P 1 0 0 0 Type Value Full Term 1 Total 1 Immunizations Vaccine Type Date Status Note Provider Nam e and Address Organization Details Recorded Time pneumococcal, unspecified formulation 08/09/2024 completed [facility] 01/07/2025 15:04:12 Past Encounters Encounter ID Performer Location Encounter Start Date Encounter Closed Date Diagnosis/Indication Diagnosis SNOMED-CT Code Diagnosis ICD10 Code Diagnosis IMO Codes Diagnosis Note [id number] Aakash Cha MD [facility], [facility] [address] [facility] [address] ,[address] [address] 01/07/2025 14:16:01 01/07/2025 17:11:30 Allergic rhinitis 00663089 J30.9 9480610033 Increased thirst 7315560 03 R63.1 304449 Increased frequency of urination 290510345 R35.0 024226 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 593555 -- has sleep disturbanc e Expiratory wheezing 9763 007 R06.2 33040957 -- just had chest CT done in September 2024 at [facility] History of gastroesophageal reflux disease 3349208897 9106 Z87.19 113267 History of clinical finding in subject 984327600 Z86.79 770999 Eye / vision finding 118 391164 H53.9 1667551 -- on 01/07/25 pt reported she is already seeing Ophth and is closely followed for catarct; pt said she will give me his name the next visit 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 133842479 E66.811 E66.09 Z68.32 80052465 Hepatitis C screening 41 9186139 Z11.59 32526821 HIV screening 521104543 Z11.4 432815 Active or passive immunization 324784853 Z23 -- pt does not want Flu shot Screening for malignant neoplasm of colon 974445400 Z12.11 -- pt reported on 01/07/25 that she is due for f/u Colonoscop y w/ Dr Stephan Mccann Screening for malignant neoplasm of breast 903248324 Z12.31 -- pt reported she had a normal mammogram done around September 2024 Gynecologi c examination 09028394 Z01.419 Fatigue 41853777 R53.83 Nicotine d ependence with current use 072142121 F17.210 -- started smoking at 20 y/o; started smoking regular 1 ppd x over 20 years -- advised to quit smoking because of increased risks for stroke, heart attacks, cancers, COPD (emphysema /chronic bronchitis ), aneurysm and premature . -- had chest CT done in [facility] in [place], [place] around September 2024 Localized swelling of right lower leg 9727634357 4395085 R22.41 8397502776 Joint stiffness 83361392 M25.621 60867522 (at right bicep area) -- when swinging or walking Pain of knee region 1003 746846 M25.561 M25.562 G89.29 80098261 (R>L) knees Health Concerns Section Related Observation LastModified by Organization Detai ls LastModified Time None Recorded Concern Status LastModified by Organization Details LastModified Time None Recorded Advance Directives Directive Y: Payers Insurance Date Sequence Insurance Name Policy Number Policy Nice Covered Member ID Nice Member ID Guarantor Name 10/13/2024 1 *SELF PAY* Sandip Tan 01/07/2025 2 [place] Chelsy Tan [id number] Chelsy Tan 01/07/2025 1 [facility] (MEDICARE REPLACEMENT/A DVANTAGE - PPO) [id number] Chelsy Tan [id number] Chelsy Tan Notes Date Note Type Note [...] angina equivalent symptoms, etc. Aakash Cha MD [address] [facility], [place], [address], [facility] 01/07/2025 17:13:09 OBGyn Episode No OBEpisode recorded.
--- OUTSIDE RECORDS SUMMARY | 2025-01-08 11:45 | XMS_ITS | Clinical Summary ---
Author Organization [facility] Address [address] [place] [address] Care Team Providers Care Enterprise Architect Name Role Phone None, Provider MD Primary Care Provider Unavaila ble Allergies Active Allergy Reactions Criticality Noted Date Comments Morphine Itching 04/09/2017 Medications amoxicillin-clavula ad 875-125 MG tablet Take 1 tablet by mouth 2 (two) times daily. Active lisinopril 5 MG tablet Take 5 mg by mouth daily. Active traMADol 50 MG tablet Take 50 mg by mouth every 6 (six) hours as needed for Pain. Active clonazePAM 0.5 MG tablet Take 0.5 mg by mouth 2 (two) times daily as needed for Anxiety. Active zolpidem 5 MG tablet Take 5 mg by mouth nightly as needed for Sleep. Active potassium chloride CR 10 MEQ CR capsule Take 10 mEq by mouth 2 (two) times daily. Active fexofenadine 180 MG tablet Take 180 mg by mouth daily. Active albuterol sulfate HFA 108 (90 BASE) MCG/ACT inhaler Inhale 2 puffs into the lungs every 6 (six) hours as needed for Wheezing. Active fluticasone propionate 50 MCG/ACT nasal spray 1 spray by Nasal route daily. Active vitamin B-12 100 MCG tablet Take 50 mcg by mouth daily. Active Fish Oil 1000 MG Cap Active vitamin E 100 UNIT capsule Take 100 Units by mouth daily. Active methylPREDNISolone, RONNIE, 4 MG tablet 6 TABLETS ON DAY ONE, 5 TABLETS DAY TWO, 4 TABLETS DAY THREE, 3 TABLETS DAY FOUR, 2 TABLETS DAY FIVE, AND 1 TABLET DAY SIX 1 each 8 Active LORazepam (ATIVAN) 1 MG tabletIndications:V ertigo Take 1 tablet (1 mg total) by mouth every 6 (six) hours as needed for Other (vertigo). 11 tablet 4 Active ondansetron (ZOFRAN-ODT) 4 MG disintegrating tabletIndications:V ertigo Take 1 tablet (4 mg total) by mouth every 8 (eight) hours as needed for Nausea. 20 tablet 4 Active Active Problems No known active problems Family History Medical History Relation Comments Aneurysm Father Diabetes Father Heart Disease Mother Relation Status Comments Father Mother Social History Tobacco Use Types Packs/Day Years Used Date Smoking Tobacco: Every Day Cigarettes Smokeless Tobacco: Never Alcohol Use Standard Drinks/Week Comments No 0 (1 standard drink = 0.6 oz pur e alcohol) Comments No Sex and Gender Information Value Date Recorded Sex Assigned at Not on file Legal Sex Female 8:12 PM CDT Gender Identity Not on file Sexual Orientation Not on file Last Filed Vital Signs Vital Sign Reading Time Taken Comments Blood Pressure 123/66 12/19/2023 11:00 PM CDT Pulse 65 12/19/2023 11:00 PM CDT Temperature 36.9 C (98.4 F) 12/19/2023 9:02 PM CDT Respiratory Rate 19 12/19/2023 11:00 PM CDT Oxygen Saturation 98% 12/19/2023 11:00 PM CDT Inhaled Oxygen Concentration - - Weight 111.1 kg (245 lb) 12/19/2023 9:13 PM CDT Height 165.1 cm (5' 5) 12/19/2023 9:13 PM CDT Body Mass Index 40.77 12/19/2023 9:13 PM CDT Plan of Treatment Health Maintenance Due Date Last Done Comments Colorectal Cancer Screening Colonoscopy (10 Years) 1954 Hepatitis C 1972 DTaP, Tdap and Td Vaccines ( 1 - Tdap) 1973 Mammogram Screening 1994 Zoster Vaccines (1 of 2) 2004 RSV Immunization or 60+ Years (1 - Risk 60-74 years 1-dose series) 2014 Annual Medicare Wellness Visit 11/23/2019 Dexa Scan (General) 11/23/2019 Pneumococcal Vaccine: 50+ Years (3 of 3 - PCV20 or PCV21) 08/26/2022 08/26/2017, 07/21/2015 COVID-19 Vaccine (3 - 2024-2 6 season) 2024 07/05/2020, 06/14/2020 Influenza Adult (#1) 2024 02/25/2018, 04/02/2017, 02/28/2014 Hepatitis A Vaccines Aged Out No long er eligible based on patient's age to complete this topic Meningococcal B Vaccine Aged Out No l onger eligible based on patient's age to complete this topic Meningococcal Vaccine Aged Out No zoran jose elias eligible based on patient's age to complete this topic RSV Immunizations Under 20 Months Aged Out No longer eligible b ased on patient's age to complete this topic Additional Health Concerns Infection Onset Date Last Indicated C. difficile 10/16/2016 10/16/2016 Insurance MEDICARE [facility] MEDICARE Care Teams Enterprise Architect Relationship Specialty Start Date End Date None, Provider, MD PCP - General UNKNOWN PHYSICIAN SPECIALTY 12/19/23
--- OUTSIDE RECORDS SUMMARY | 2025-01-08 11:45 | XMS_ITS | Clinical Summary ---
Author Organization [facility] Address [address] [place] [address] Care Team Providers Care Computer Education Professor Name Role Phone Charleen Diaz MD Primary Care Provider [phone] Elyse Mitchell CRANBERRY GROWER Unavailable [phone] Source Comments [facility],non-owned Affiliates and Associated Physician Practices is amultiple site organization consisting of ambulatory clinics and hospital sitesin [place], [place], [place] and [place]. This disclosure is being madepursuant to the Care Everywhere program and may not contain all information available regarding this patient. Last updated 17.[facility] Allergies Active Allergy Reactions Criticality Noted Date Comments Morphine Itching High 02/26/2014 Medications * Be aware that medications may not be up to date on this document. Alwaysverify current medications with the patient. vitamin E (TOCOPHERYL) 400 UNIT capsule Take 400 Units by mouth once daily. Active clonazePAM (KLONOPIN) 1 MG tablet Take 1 mg by mouth as needed for Anxiety. Active zolpidem (AMBIEN) 10 MG tablet Take 10 mg by mouth at bedtime. Active cyanocobalamin (VITAMIN B-12) 500 MCG tablet Take 500 mcg by mouth once daily. Active fluticasone propionate (FLONASE) 50 MCG/ACT nasal spray Ideal 2 Sprays into each nostril once daily. Active multivitamin daily (THERAGRAN) tablet Take 1 Tab by mouth daily with food. Active potassium chloride (KLOR-CON M) 10 MEQ tablet Take 10 mEq by mouth once daily. Active [place]-3 Fatty Acids (FISH OIL) 1000 MG CAPS capsule Take 1,000 mg by mouth once daily. Active Cholecalciferol (VITAMIN D-3) 1000 UNITS CAPS Take 1,000 Units by mouth once daily. Active fexofenadine (IAN) 180 MG tabletIndicatio ns:Seasonal Allergic Rhinitis Take 180 mg by mouth once daily. Indications: Hayfever Active ranitidine (ZANTAC) 150 MG tablet Take 150 mg by mouth 2 times daily. Active dicyclomine (BENTYL) 10 MG capsule Take 10 mg by mouth 3 times daily as needed. Active folic acid (FOLVITE) 1 MG tablet Take 1 Tab by mouth once daily. 30 Tab 0 5 Active nicotine (NICODERM CQ) 7 MG/24HR patchIndication s:Nicotine Dependence Apply 1 Patch to skin once daily. Indications: Nicotine Addiction 30 Patch 0 5 Active thiamine 100 MG TABS Take 1 Tab by mouth once daily. 30 Tab 0 5 Active polyethylene glycol 3350 (MIRALAX) packet Take 17 g by mouth once daily as needed for Constipation. 0 0 5 Active calcium-vitamin D (OS-ALEJANDRINA 250 PLUS D 125 UNITS) 250-125 MG-UNIT tablet Take 1 Tab by mouth 2 times daily with morning and evening meal. 0 0 5 Active vitamin D, ergocalciferol, (DRISDOL) 42233 UNITS capsule Take 1 Cap by mouth every 7 days. 0 0 5 Active oxyCODONE-aceta minophen (PERCOCET) 5-325 MG tablet Take 1 Tab by mouth every 4 hours as needed for Pain. 30 Tab 0 5 Active cyclobenzaprine (FLEXERIL) 10 MG tablet Take 1 Tab by mouth 3 times daily as needed for Muscle Spasms. 60 Tab 0 5 Active FERROUS SULFATE PO Active GABAPENTIN PO Active Active Problems Problem Noted Date Diagnosed Date Femur fracture, left 07/22/2014 Anemia 07/22/2014 Alcohol abuse 07/22/2014 Tobacco abuse 07/22/2014 Hypertension 02/27/2014 Asthma 02/27/2014 Colitis 02/27/2014 Anxiety 02/27/2014 Resolved Problems Problem Noted Date Diagnosed Date Resolved Date Diarrhea 02/27/2014 07/21/2014 Encounters Date Type Department Care Team Description 11/26/2024 Orders Only [facility] - Orthopedic Surgery [address] [place] [address] Chavo Hendrickson MD Pain in both knees, unspecified chronicity 11/11/2024 Travel from Last 3 Months Immunizations Immunization Administration Dates Next Due INFLUENZA VACCINE, TRIV. (FL UZONE; FLULAVAL; FLUARIX; AFLURIA TRIVALENT; 6MO+), 0.5 ML (IIV3) 02/28/2014 Social History Tobacco Use Types Packs/Day Years Used Date Smoking Tobacco: Every Day Cigarettes Smokeless Tobacco: Never Tobacco Cessation:Ready to Q uit: No; Counseling Given: Yes Alcohol Use Standard Drinks/Week Comments Yes 0 (1 standard drink = 0.6 oz pur e alcohol) every other day Comments No Sex and Gender Information Value Date Recorded Sex Assigned at Not on file Legal Sex Female 6:47 AM 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 Gender Identity Not on file Sexual Orientation Not on file Last Filed Vital Signs Vital Sign Reading Time Taken Comments Blood Pressure 122/77 07/23/2014 4:47 PM CDT Pulse 102 07/23/2014 4:47 PM CDT Temperature 36.8 C (98.2 F) 07/23/2014 4:47 PM CDT Respiratory Rate 18 07/23/2014 8:27 AM CDT Oxygen Saturation 100% 07/23/2014 4:47 PM CDT Inhaled Oxygen Concentration - - Weight 113.9 kg (251 lb 1.6 oz) 019 10:28 AM 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 Height 167.6 cm (5' 6) 02/26/2017 10:2 7 AM [employer]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 Body Mass Index 40.53 02/26/2017 10:27 AM [employer]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 Plan of Treatment Health Maintenance Due Date Last Done Comments BONE DENSITY TESTING 1954 COLOGUARD (AGES 45-75) - COL ON CA SCREENING 1954 COLON MONITORING 1954 COLONOSCOPY - COLON CA SCREENING 1954 CT COLONOGRAPHY - COLON CA SCREENING 1954 Colorectal Cancer Screening 1954 FIT - COLON CA SCREENING 1954 FLEX SIG - COLON CA SCREENING 1954 LIPID TESTING 1954 MAMMOGRAM 1954 HEPATITIS C SCREENING 11/17/1972 DTAP/TDAP/TD VACCINES (1 - Tdap) 1973 PNEUMOCOCCAL VACCINE 50+ (1 of 2 - PCV) 1973 ZOSTER VACCINE (1 of 2) 2004 Respiratory Syncytial Virus (RSV) Vaccine Pt: or over 60 yrs (1 - Risk 60-74 years 1-dose series) 2014 DEPRESSION SCREENING 03/11/2024 MEDICARE AWV CALENDAR YEAR 2024 COVID-19 VACCINE (1 - 2023-2 5 season) 2024 INFLUENZA VACCINE (#1) 2024 8, 04/02/2017, 02/28/2014 HEPATITIS B VACCINE Aged Out No longe r eligible based on patient's age to complete this topic HIB VACCINE Aged Out No longer eligi ble based on patient's age to complete this topic HPV VACCINE Aged Out No longer eligi ble based on patient's age to complete this topic MENINGOCOCCAL (Group B) VACCINE SHARED DECISION-MAKING Aged Out No longer eligible based on patient's age to complete this topic MENINGOCOCCAL GROUPS A/C/Y/W VACCINE Aged Out No longer eligible b ased on patient's age to complete this topic Medical Devices Implanted Type Area Brush Polisher Device Identifier Shelf Expiration Date Model / Serial / Lot Plate Dist Fem Lat 8hole L 4.5mm X 193mm Implanted:Qty: 1 on 07/02/2014 by Chavo Hendrickson MD at [facility] Left: Hip [employer] 04/10/2024 [id number] / / [id number] Scrw Magen Tatyana-Dick 4.5mm X 58mm Implanted:Qty: 1 on 07/02/2014 by Chavo Hendrickson MD at [facility] Left: Femur [employer] [id number] / / Scrw Magen Tatyana-Dick 4.5mm X 56mm Implanted:Qty: 1 on 07/02/2014 by Chavo Hendrickson MD at [facility] Left: Femur [employer] [id number] / / 4.5 Locking Screw Implanted:Qty: 1 on 07/02/2014 by Chavo Hendrickson MD at [facility] Left: Femur [id number] / / Scrw Haroon Dick 5.7mm X 80mm Implanted:Qty: 5 on 07/02/2014 by Chavo Hendrickson MD at [facility] Left: Femur [employer] [id number] / / Scrw Haroon Dick 5.7mm X 85mm Implanted:Qty: 1 on 07/02/2014 by Chavo Hendrickson MD at [facility] Left: Femur [employer] [id number] / / Scrw Magen Tatyana-Dick 4.5mm X 40mm Implanted:Qty: 1 on 07/02/2014 by Chavo Hendrickson MD at [facility] Left: Femur [employer] [id number] / / Scrw Magen Tatyana-Dick 4.5mm X 44mm Implanted:Qty: 1 on 07/02/2014 by Chavo Hendrickson MD at [facility] Left: Femur [employer] [id number] / / Scrw Magen Tatyana-Dick 4.5mm X 48mm Implanted:Qty: 1 on 07/02/2014 by Chavo Hendrickson MD at [facility] Left: Femur [employer] [id number] / / Scrw Magen Tatyana-Dick 4.5mm X 52mm Implanted:Qty: 1 on 07/02/2014 by Chavo Hendrickson MD at [facility] Left: Femur [employer] [id number] / / Scrw Magen Tatyana-Dick 4.5mm X 62mm Implanted:Qty: 1 on 07/02/2014 by Chavo Hendrickson MD at [facility] Left: Femur [employer] [id number] / / Additional Health Concerns Infection Onset Date Last Indicated C DIFF 03/01/2014 03/01/2014 Insurance [facility] MANAGED MEDICARE ADV Advance Directives * Full Code (Latest Code Status on File) Date Activated Date Inactivated Comments 07/02/2014 4:32 PM 07/23/2014 9:16 PM * Full Code Date Activated Date Inactivated Comments 06/28/2014 8:40 AM 07/02/2014 4:32 PM * Full Code Date Activated Date Inactivated Comments 06/28/2014 8:27 AM 06/28/2014 8:40 AM * Full Code Date Activated Date Inactivated Comments 03/26/2014 3:19 PM 03/29/2014 2:53 PM * Full Code Date Activated Date Inactivated Comments 02/27/2014 9:23 AM 03/02/2014 2:31 PM Care Teams Computer Education Professor Relationship Specialty Start Date End Date Charleen Diaz MD [address] [place] [address] [place] [address] PCP - General Family Medicine 02/26/14 Elyse Mitchell, [facility] Instructor [employer]mable [employer]rollers 06/30/14
== END 2025-01-08 11:35 | disposition home or self-care (01) ==
PROVIDERS: PCP Internal Medicine; Visit Provider Internal Medicine
DX: R22.41 Localized swelling, mass and lump, right lower limb (principal); F17.210 Nicotine dependence, cigarettes, uncomplicated
CPT/HCPCS: 93971